=== PATIENT | female | born 1995 | race Caucasian/White ===

== ENCOUNTER 2017-02-09 14:41 | Emergency (ER) | payer OTHER, MEDICAID ==
[~2017-02-09] VITALS: Ht 160 cm; Wt 71.7 kg
[~2017-02-09 14:41] MED LIST: CEPH-507 PO; HYDR-3812 PO; IBUP-1773 PO; KETO75CA PO; PREN1TAB86 PO
[2017-02-09 15:00] VITALS: BP 157/87
[2017-02-09] MEDS ORDERED: LAMO100T (15:23)
[2017-02-09] MEDS ORDERED: HYDR-700 (15:23)
[2017-02-09] MEDS ORDERED: NS IV 1000 ML 1,000 ML IV ONE (16:11)
[2017-02-09 16:33] LABS: BASOPHILS % (AUTO) 0 % (0-10); EOSINOPHILS % (AUTO) 0 % (0-10); LYMPHOCYTES # (AUTO) 2.6 X 10^3 (1.0-4.0); LYMPHOCYTES % (AUTO) 11 % (12-44); MEAN CORPUSCULAR HEMOGLOBIN 28 PG (25-34); MEAN CORPUSCULAR HGB CONC 37 G/DL (32-36); MEAN CORPUSCULAR VOLUME 77 FL (80-99); MONOCYTES # (AUTO) 1.8 X 10^3 (0.0-1.0); MONOCYTES % (AUTO) 8 % (0-12); NEUTROPHILS # (AUTO) 18.6 X 10^3 (1.8-7.8); NEUTROPHILS % (AUTO) 81 % (42-75); PLATELET COUNT 448 10^3/uL (130-400); RED CELL DISTRIBUTION WIDTH 14.5 % (10.0-14.5)
--- NOTE | 2017-02-09 16:33 | ED General ---
General Chief Complaint: Upper Extremity Stated Complaint: ABSCESS ON RIGHT ARM Nursing Triage Note: ARRIVED VIA AMB WITHOUT DIFFICULTY. COMPLAINS OF RIGHT ARM PAIN, REDNESS, ET EDEMA STARTING YESTERDAY. PT DENIES IV DRUG USE ET IS VERY TWITCHY. Nursing Sepsis Screen: No Definite Risk Source of Information: Patient Exam Limitations: No Limitations History of Present Illness Time Seen by Provider: 16:00 Initial Comments This 22-year-old woman presents to the emergency room with complaints of erythema and pain in the right antecubital fossa suggestive of cellulitis. She also has pain with flexion of the elbow and some mild swelling in that area. She reports the redness and irritation started last night and has worsened throughout the day. She denies any fever. She is significantly tachycardic on presentation. She has rather profound dystonic movements suggestive of methamphetamine use and she has the appearance of injection motley near the affected area on the right arm. Patient denies any substance abuse. She believes she has had some fevers at home but has not measured her temperature. Allergies and Home Medications Allergies Coded Allergies: No Known Drug Allergies (Unverified , 06/27/10) Home Medications Hydroxyzine HCl 25 Mg Tablet #90 (Reported) Lamotrigine 100 Mg Tablet #30 (Reported) Constitutional: see HPI EENTM: no symptoms reported Respiratory: no symptoms reported Cardiovascular: see HPI Gastrointestinal: no symptoms reported Genitourinary: no symptoms reported : No Musculoskeletal: see HPI Skin: see HPI Past [id number] Hx Patient Social History Alcohol Use: Denies Use Recreational Drug Use: No Drug of Choice: THC Smoking Status: Current Everyday Smoker Type Used: Cigarettes Recent Foreign Travel: No Contact w/Someone Who Travel: No Recent Infectious Disease Expo: No Recent Hopitalizations: No Immunizations Up To Date Tetanus Booster (TDap): Less than 5yrs Seasonal Allergies Seasonal Allergies: No Surgeries HX Surgeries: Yes Surgeries: Gallbladder Respiratory Hx Respiratory Disorders: Yes (Pleurisy) Cardiovascular Hx Cardiac Disorders: No Neurological Hx Neurological Disorders: No Reproductive System Hx Reproductive Disorders: No Genitourinary Hx Genitourinary Disorders: No Gastrointestinal Hx Gastrointestinal Disorders: Yes (Gallstones) Gastrointestinal Disorders: Gall Bladder Disease Musculoskeletal Hx Musculoskeletal Disorders: No Endocrine Hx Endocrine Disorders: No HEENT HX ENT Disorders: No Cancer Hx Cancer: No Psychosocial Hx Psychiatric Problems: Yes Behavioral Health Disorders: Anxiety, ODD, Bipolar, Depression Integumentary HX Skin/Integumentary Disorder: No Blood Transfusions Hx Blood Disorders: No Adverse Reaction to a Blood Tr: No Family Medical History Significant Family History: Heart Disease, Cancer (breast) Family Medial History: Arthritis Diabetes mellitus FH: cancer FH: heart failure FH: stroke Hypertension Myocardial infarction Total blockage of heart Physical Exam-Suspected Sepsis Physical Exam Vital Signs Vital Sign - Last 12Hours 02/09/17 15:00 Temp 96.5 Pulse 125 Resp 16 B/P 157/87 Pulse Ox 98 Capillary Refill : Less Than 3 Seconds Blood Pressure Mean: 110 General Appearance: WD/WN Mild Distress HEENT: PERRL/EOMI Normal ENT Inspection Respiratory: Lungs Clear Normal Breath Sounds No Accessory Muscle Use No Respiratory Distress Cardiovascular: No Edema No Murmur Tachycardia Extremity: Other (there is a streaky patch of erythema in the antecubital fossa with some apparent puncture motley at the distal edge of the erythema. The elbow is mildly swollen and painful with range of motion) Neurologic/Psychiatric: Alert Oriented x3 No Motor/Sensory Deficits Normal Mood/Affect strap buckler II-XII Norm as Tested Other (involuntary dystonic movements) Skin: normal color warm/dry other (erythema and puncture motley in the right antecubital fossa) Laceration Repair : Suture Size: 4-0 Progress/Results/Core Measures Suspected Sepsis Recent Fever Within 48 Hours: No Infection Criteria Present: None New/Unexplained Altered Menta: No Sepsis Screen: No Definite Risk Sepsis Diagnosis: SIRS Temperature:96.5 Pulse: 125 Respiratory Rate: 16 Laboratory Tests 02/09/17 16:20: White Blood Count 23.0H Blood Pressure 157 /87 Mean: 110 Laboratory Tests 02/09/17 16:20: Creatinine 0.79, INR Comment 1.0, Platelet Count 448H, Total Bilirubin 1.0 Results/Orders Lab Results Laboratory Tests Test 02/09/17 16:20 Range/Units Activated Partial Thromboplast Time 33 24-35 SEC Alanine Aminotransferase (ALT/SGPT) 17 0-55 U/L Albumin 4.5 3.2-4.5 G/DL Alkaline Phosphatase 92 40-136 U/L Anion Gap 13 5-14 MMOL/L Aspartate Amino Transf (AST/SGOT) 26 5-34 U/L BUN/Creatinine Ratio 16 Band Neutrophils 0 % Basophils # (Auto) 0.0 0.0-0.1 10^3/uL Basophils % (Manual) 0 % Basophils (%) (Auto) 0 0-10 % Blood Morphology Comment NORMAL Blood Urea Nitrogen 13 7-18 MG/DL C-Reactive Protein High Sensitivity 6.44 H 0.00-0.50 MG/DL Calcium Level 9.7 8.5-10.1 MG/DL Carbon Dioxide Level 18 L 21-32 MMOL/L Chloride Level 102 98-107 MMOL/L Creatinine 0.79 0.60-1.30 MG/DL Eosinophils # (Auto) 0.0 0.0-0.3 10^3/uL Eosinophils % (Manual) 0 % Eosinophils (%) (Auto) 0 0-10 % Estimat Glomerular Filtration Rate > 60 Glucose Level 100 70-105 MG/DL Hematocrit 39 35-52 % Hemoglobin 14.1 11.5-16.0 G/DL INR Comment 1.0 0.8-1.4 Lactic Acid Level 0.92 0.50-2.00 MMOL/L Lymphocytes # (Auto) 2.6 1.0-4.0 X 10^3 Lymphocytes % (Manual) 18 % Lymphocytes (%) (Auto) 11 L 12-44 % Mean Corpuscular Hemoglobin 28 25-34 PG Mean Corpuscular Hemoglobin Concent 37 H 32-36 G/DL Mean Corpuscular Volume 77 L 80-99 FL Mean Platelet Volume 9.0 7.4-10.4 FL Monocytes # (Auto) 1.8 H 0.0-1.0 X 10^3 Monocytes % (Manual) 1 % Monocytes (%) (Auto) 8 0-12 % Neutrophils # (Auto) 18.6 H 1.8-7.8 X 10^3 Neutrophils % (Manual) 81 % Neutrophils (%) (Auto) 81 H 42-75 % Platelet Count 448 H 130-400 10^3/uL Potassium Level 3.7 3.6-5.0 MMOL/L Prothrombin Time 13.3 12.2-14.7 SEC Red Blood Count 5.00 4.35-5.85 10^6/uL Red Cell Distribution Width 14.5 10.0-14.5 % Serum Test, Qualitative NEGATIVE NEGATIVE Sodium Level 133 L 135-145 MMOL/L Total Bilirubin 1.0 0.1-1.0 MG/DL Total Protein 7.7 6.4-8.2 G/DL White Blood Count 23.0 H 4.3-11.0 10^3/uL My Orders Orders-JONATHON FISCHER MD Cbc With Automated Diff (02/09/17 16:11) Comprehensive Metabolic Panel (02/09/17 16:11) Lactic Acid Analyzer (02/09/17 16:11) Blood Culture (02/09/17 16:) Protime With Inr (02/09/17:) Partial Thromboplastin Time (02/09/17 16:11) O2 (02/09/17 16:11) Saline Lock/Iv-Start (02/09/17 16:11) Saline Lock/Iv-Start (02/09/17 16:) Vital Signs Adult Sepsis Patie Q1HR (02/09/17 16:11) Remove Rings In Anticipation O (02/09/17 16:) Hs C Reactive Protein (02/09/17 16:) Hcg,Qualitative Serum (02/09/17:) Ns Iv 1000 Ml (Sodium Chloride 0.9%) (02/09/17 16:) Manual Differential (02/09/17 16:20) Vital Signs/I&O Vital Sign - Last 12Hours 02/09/17 15:00 Temp 96.5 Pulse 125 Resp 16 B/P 157/87 Pulse Ox 98 Capillary Refill : Less Than 3 Seconds Blood Pressure Mean: 110 Progress Note #1: Time: 16:32 Progress Note Patient was seen and evaluated. She had source of infection with probable cellulitis on the right arm and was notably tachycardic. There was concern for sepsis and septic workup was ordered. Patient denied drug use but methamphetamine use was suspected due to her uncontrollable dystonic movements and evidence of injection motley near the cellulitis in the right antecubital fossa. Patient was informed a drug screen would be performed along with her workup. Nursing notified me at 14:30 the patient was demanding her IV be removed so that she can leave. Patient will be required to sign AMA paperwork if she leaves. Progress Note #2: Time: 19:18 Progress Note Patient did leave AGAINST MEDICAL ADVICE. She was clearly informed by nursing staff prior to leaving that she may have a life threatening condition. Her labs were reviewed when they were available. She had notable leukocytosis and an elevated CRP. I made two attempts to contact the patient by phone. There was no answer on the first attempt. On the second attempt I spoke with a man who stated patient was "out cold". I informed him it was important that she return to the emergency room immediately. He expressed understanding and implied he would get her back to the emergency room promptly. This information was passed along to Dr. Hicks. Departure Impression Impression: Primary Impression: Sepsis Qualified Code: A41.9 - Sepsis, unspecified organism Additional Impressions: Cellulitis of right arm Tachycardia Disposition: 07 AGAINST MEDICAL ADVICE Condition: Unchanged Departure-Patient Inst. Referrals: NO,LOCAL PHYSICIAN (PCP/Family) Primary Care Physician JONATHON FISCHER MD Feb 09, 2017 16:33
[2017-02-09 16:47] LABS: PROTHROMBIN TIME PATIENT 13.3 SEC (12.2-14.7)
[2017-02-09 16:50] LABS: BAND NEUTROPHILS 0 %; BASOPHILS % (MANUAL) 0 %; EOSINOPHILS % (MANUAL) 0 %; LYMPHOCYTES % (MANUAL) 18 %; NEUTROPHILS % (MANUAL) 81 %
[2017-02-09 16:52] LABS: ALANINE AMINOTRANSFERASE 17 U/L (0-55); ALBUMIN 4.5 G/DL (3.2-4.5); ANION GAP 13 MMOL/L (5-14); ASPARTATE AMINO TRANSFERASE 26 U/L (5-34); BLOOD UREA NITROGEN 13 MG/DL (7-18); BUN/CREATININE RATIO 16; CALCIUM 9.7 MG/DL (8.5-10.1); CARBON DIOXIDE 18 MMOL/L (21-32); CHLORIDE 102 MMOL/L (98-107); CREATININE SERUM 0.79 MG/DL (0.60-1.30); GFR ESTIMATED > 60; GLUCOSE 100 MG/DL (70-105); POTASSIUM 3.7 MMOL/L (3.6-5.0); SODIUM 133 MMOL/L (135-145); TOTAL PROTEIN 7.7 G/DL (6.4-8.2); hs C REACTIVE PROTEIN 6.44 MG/DL (0.00-0.50)
== END 2017-02-09 16:30 | disposition left against medical advice (07) ==
LOC: EDUNIT# 14:41 → ER 14:44
DX: A41.9 Sepsis, unspecified organism (principal); L03.113 Cellulitis of right upper limb; R00.0 Tachycardia, unspecified; F17.210 Nicotine dependence, cigarettes, uncomplicated; Z53.29 Procedure and treatment not carried out because of patient's decision for other reasons
CPT/HCPCS: 36415; 80053; 83605; 84703; 85007; 85027; 85610; 85730; 86141; 87040

== ENCOUNTER → 2019-11-25 | Outpatient (CLI) | payer OTHER ==
[~2019-11-25] MED LIST changes: +ACHD5005 PO; +ACYC400T PO; -HYDR-3812 PO; +HYDR-700; +LAMO100T; +PREN-53 PO; +SERT25TA5 PO
--- NOTE | 2019-11-25 12:51 | Diagnostic Imaging Report ---
INDICATION: Elevated blood pressure. A biophysical profile was performed. Fetus is cephalic. heart rate was recorded at 153 bpm. Amniotic fluid index is 11.1 cm. Biophysical profile score 6 out of 8. Two-point deduction was given for only single episode of breathing movement was visualized for 15 seconds or less. IMPRESSION: Biophysical profile score 6 out of 8. Dictated by: Dictated on workstation # [id number]
== END ==
LOC: RAD 11:43
PROVIDERS: ATTEND Family Medicine
DX: O13.3 Gestational [pregnancy-induced] hypertension without significant proteinuria, third trimester (principal); Z3A.00 Weeks of gestation of pregnancy not specified
CPT/HCPCS: 76819

== ENCOUNTER 2019-11-26 17:26 | Outpatient (CLI) | payer OTHER ==
[2019-11-26] VITALS (23 sets, daily range): BP systolic 125–144; BP diastolic 5–91
[~2019-11-26] VITALS: Ht 160 cm; Wt 82.5 kg
[~2019-11-26 17:26] MED LIST changes: -ACYC400T PO; -PREN-53 PO; -SERT25TA5 PO
--- NOTE | 2019-11-26 17:30 | NUR ---
WALTER DEJESUS presented to unit via ambulation from ED, accompanied by mother, with c/o HIGH BLOOD PRESSURE,DIZZY,CRAMPING. WALTER DEJESUS weighed, gowned, voided, and to bed. EFHM and TOCO applied, VS taken. WALTER DEJESUS oriented to bed controls, call light, TV, heat, and A/C controls.
[2019-11-26] MEDS ORDERED: LACTATED RINGERS 1,000 ML IV SCH (18:45)
[2019-11-26 19:20] LABS: BASOPHILS % (AUTO) 0 % (0-10); EOSINOPHILS # (AUTO) 0.1 10^3/uL (0.0-0.3); EOSINOPHILS % (AUTO) 1 % (0-10); HEMATOCRIT 36 % (35-52); HEMOGLOBIN 12.5 G/DL (11.5-16.0); LYMPHOCYTES # (AUTO) 2.1 X 10^3 (1.0-4.0); LYMPHOCYTES % (AUTO) 19 % (12-44); MEAN CORPUSCULAR HEMOGLOBIN 29 PG (25-34); MEAN CORPUSCULAR HGB CONC 35 G/DL (32-36); MEAN CORPUSCULAR VOLUME 82 FL (80-99); MEAN PLATELET VOLUME 9.3 FL (7.4-10.4); MONOCYTES # (AUTO) 0.6 X 10^3 (0.0-1.0); MONOCYTES % (AUTO) 6 % (0-12); NEUTROPHILS # (AUTO) 8.5 X 10^3 (1.8-7.8); NEUTROPHILS % (AUTO) 75 % (42-75); PLATELET COUNT 435 10^3/uL (130-400); RED CELL DISTRIBUTION WIDTH 14.8 % (10.0-14.5); WHITE BLOOD COUNT 11.4 10^3/uL (4.3-11.0)
[2019-11-26] MEDS ORDERED: ACYC400T PO ×2 (19:33)
[2019-11-26] MEDS ORDERED: SERT25TA5 PO ×2 (19:33)
[2019-11-26] MEDS ORDERED: PREN-53 PO ×2 (19:33)
[2019-11-26 19:38] LABS: ALANINE AMINOTRANSFERASE 11 U/L (0-55); ALBUMIN 3.7 GM/DL (3.2-4.5); ALKALINE PHOSPHATASE 124 U/L (40-136); BILIRUBIN,TOTAL 0.2 MG/DL (0.1-1.0); BUN/CREATININE RATIO 9; CALCIUM 9.5 MG/DL (8.5-10.1); CARBON DIOXIDE 17 MMOL/L (21-32); CHLORIDE 107 MMOL/L (98-107); CREATININE SERUM 0.55 MG/DL (0.60-1.30); GFR ESTIMATED > 60; GLUCOSE 76 MG/DL (70-105); POTASSIUM 3.7 MMOL/L (3.6-5.0); SODIUM 136 MMOL/L (135-145); TOTAL PROTEIN 6.4 GM/DL (6.4-8.2); URIC ACID 3.8 MG/DL (2.6-7.2)
--- NOTE | 2019-11-26 20:40 | NUR ---
Dr. Piña called with update on pt contractions and labs. Vitals and blood pressures reviewed. SVE reviewed. orders one dose of Vistaril 50mg to be given for contractions, and 1000mg of Tylenol to be given for headache. states that is contractions go away, to call her back with an update, but if contractions continue after Vistaril, keep pt under observation for the evening.
[2019-11-26] MEDS ORDERED: ACETAMINOPHEN 500 MG TAB (TYLENOL) PO ONE (21:00)
[2019-11-26] MEDS ORDERED: hydrOXYzine (VISTARIL/ATARAX) 25 MG capsule/tablet PO ONE (21:00)
--- NOTE | 2019-11-26 22:52 | NUR ---
Nurse in to check on pt. Pt. states that contractions are much less frequent and that she would not rate them at a 3 on the pain scale, down from an 8.
--- NOTE | 2019-11-26 23:30 | NUR ---
Pt. walked out with mom after nurse went over discharge paperwork. No s/s of distress.
--- NOTE | 2019-11-28 08:14 | Physician Query-Final Dx ---
Clinic Account Progress/Dx Physician Query: Please give diagnosis Please give # weeks gestation Date of Service Nov 26, 2019 at 17:26 KATHYA MCMILLAN Nov 28, 2019 08:14
== END 2019-11-26 23:30 | disposition home or self-care (01) ==
LOC: WSo 17:26 → LDRP 17:28 → WSo 23:30
PROVIDERS: ATTEND Family Medicine
DX: O26.893 Other specified pregnancy related conditions, third trimester (principal); R42 Dizziness and giddiness; Z3A.36 36 weeks gestation of pregnancy
CPT/HCPCS: 36415; 80053; 83615; 84550; 85025; 96360; 99214

== ENCOUNTER → 2019-11-28 | Outpatient (CLI) | payer OTHER ==
[~2019-11-28] MED LIST changes: +ACYC400T PO; +CEPH250C PO; +PREN-53 PO; +SERT25TA5 PO
--- NOTE | 2019-11-28 14:55 | Diagnostic Imaging Report ---
INDICATION: Abnormal ultrasound. There is a single live fetus in a cephalic presentation. heart rate was recorded 169 bpm. Amniotic fluid index is 10.6 cm Biophysical profile was performed with normal score of 8 out of 8. IMPRESSION: Biophysical profile score normal 8 out of 8. Dictated by: Dictated on workstation # [id number]
== END ==
LOC: RAD 14:19
PROVIDERS: ATTEND Family Medicine
DX: O28.3 Abnormal ultrasonic finding on antenatal screening of mother (principal)
CPT/HCPCS: 76819

== ENCOUNTER 2019-11-29 19:38 | Outpatient (CLI) | payer OTHER ==
[~2019-11-29] VITALS: Ht 157.5 cm; Wt 82.3 kg
[~2019-11-29 19:38] MED LIST changes: -CEPH250C PO
--- NOTE | 2019-11-29 19:45 | NUR ---
WALTER DEJESUS presented to unit via ambulation from ED, accompanied by family, with c/o CONTRACTIONS. WALTER DEJESUS weighed, gowned, voided, and to bed. EFHM and TOCO applied, VS taken. WALTER DEJESUS oriented to bed controls, call light, TV, heat, and A/C controls.
--- NOTE | 2019-11-29 19:59 | NUR ---
Asael Barrow RN in with pt, pt placed on EFM and VS obtained.
[2019-11-29 20:01] VITALS: BP 149/78
[2019-11-29 20:02] VITALS: BP 149/78
[2019-11-29 20:07] LABS: BILIRUBIN,URINE NEGATIVE (NEGATIVE); CLARITY,URINE CLEAR; COLOR,URINE YELLOW; GLUCOSE, URINE (UA) NEGATIVE (NEGATIVE); KETONES,URINE NEGATIVE (NEGATIVE); LEUKOCYTE ESTERASE ,URINE TRACE (NEGATIVE); NITRITE,URINE NEGATIVE (NEGATIVE); PROTEIN,URINE NEGATIVE (NEGATIVE)
[2019-11-29 20:17] LABS: BACTERIA,URINE MODERATE /HPF
[2019-11-29 20:18] LABS: AMORPHOUS SEDIMENT,UR FEW AMOR PHOSPHATE /LPF
[2019-11-29] MEDS ORDERED: CEPHALEXIN 250 MG (KEFLEX) CAP PO ONE ×2 (20:30→20:31)
[2019-11-29] MEDS ORDERED: CEPH250C PO (20:32)
--- NOTE | 2019-11-29 20:36 | NUR ---
Provider change to Dr Malloy due to coverage for the weekend. Dr Malloy called and orders received for discharge with treatment of UTI. New script called to [facility] and initial dose given at discharge.
[2019-11-29 20:39] VITALS: BP 149/78
--- NOTE | 2019-11-29 20:41 | NUR ---
Pt discharged with written and verbal discharge orders. Pt questions answered and pt reassured at this time. Pt ambulated to private vehicle with mother.
--- NOTE | 2019-12-02 08:48 | Physician Query-Final Dx ---
KATHYA MCMILLAN 12/02/19 0848: Clinic Account Progress/Dx Physician Query: Please give diagnosis Please give # weeks gestation Date of Service Nov 29, 2019 at 19:38 MARINA DUONG MD 12/03/19 0709: Clinic Account Progress/Dx DIAGNOSIS: Diagnosis 1. IUP at 28 weeks 2. UTI KATHYA MCMILLAN Dec 02, 2019 08:48 MARINA DUONG MD Dec 03, 2019 07:09
== END 2019-11-29 20:44 | disposition home or self-care (01) ==
LOC: LDRP 19:38 → WSo 19:38
PROVIDERS: ATTEND Family Medicine
DX: O62.9 Abnormality of forces of labor, unspecified (principal); Z3A.00 Weeks of gestation of pregnancy not specified
CPT/HCPCS: 81000; 87088; 99213

== ENCOUNTER 2019-12-05 03:52 | Inpatient (IN) | payer OTHER ==
[2019-12-05] VITALS (61 sets, daily range): BP systolic 67–164; BP diastolic 31–91
[~2019-12-05] VITALS: Ht 160 cm; Wt 82.1 kg
[~2019-12-05 03:52] MED LIST changes: +CEPH250C PO
--- NOTE | 2019-12-05 06:15 | NUR ---
WALTER DEJESUS presented to unit via ambulatory from ED, accompanied by family, with c/o INDUCTION. WALTER DEJESUS weighed, gowned, voided, and to bed. EFHM and TOCO applied, VS taken. WALTER DEJESUS oriented to bed controls, call light, TV, heat, and A/C controls.
--- NOTE | 2019-12-05 06:48 | History & Physical-OB ---
OB - Chief Complaint & HPI Date/Time Date of Admission: Date of Admission: Dec 05, 2019 at 06:14 Date seen by a Provider: Dec 05, 2019 Time Seen by a Provider: 08:50 Chief Complaint/History OB-Reason for Admission/Chief: Induction of Labor Hx : 3 Hx Para: 2 Expected Date of Delivery: Dec 12, 2019 Gestational Age in Weeks: 39 Gestational Age in Days: 0 Indication for induction: maternal discomfort History of Labs O+, antibody neg, RNI, HIV/HepB/RPR NR, GC/chlamydia neg. 1 hour glucola borderline, 3 hour okay. GBS positive. Allergies and Home Medications Allergies Coded Allergies: No Known Drug Allergies (Unverified , 06/27/10) Home Medications Cephalexin 250 Mg Capsule, 500 MG PO TID Prescribed by: AKBAR COLIN on 11/29/192031 Patient Home Medication List Home Medication List Reviewed: Yes OB - History Hx of Present Care: Yes Ultrasounds: Normal mid trimester US Medical Complications: Psychiatric (depression), Other (history of herpes, on suppression therapy) Obstetrical History Hx : 3 Hx Para: 2 Hx # Term Pregnancies: 2 Hx # Pregnancies: 0 Number of Living Children: 2 Hx Termination: No Hx Multiple Gestation: No Hx Ectopic : No Hx Stillbirth: No Hx Complication: No Hx Induced Hypertens: No Hx Maternal Gestational Diabet: No Hx Hemorrhage: No Delivery History Hx Dystocia: No Hx Forceps Assisted Delivery: No Hx Vacuum Extraction Assisted: No Hx Placenta Abnormality: No Hx Distress: No Hx Large For Gestational Age I: No Hx Small for Gestational Age I: No Hx Section: No Hx Vaginal Delivery Post C-Sec: No Hx Blood Disorders: No Adverse Rxn to Tranfusion: No Patient Past Medical History Depression Social History/Family History HIV/AIDS: No Recent Infectious Disease Expo: No Sexually Transmitted Disease: Yes Alcohol Use: Denies Use Recreational Drug Use: No Smoking Cessation: Current every day smoker Immunizations Hepatitis A: Yes Hepatitis B: Yes Tetanus Booster (TDap): Less than 5yrs Rubella: immune RPR/VDRL: Negative GBS Status: Positive HBsAG: Negative OB - Admission Exam Physical Exam HEENT: NCAT Abdomen: Non tender Extremities: Normal Cervical Dilatation: 4cm Effacement: 25% Station: -3 Membranes: Ruptured (AROM at time of exam, clear fluid) Amniotic Fluid: Clear Heart Rate: 140's Accelerations: Accelerations Present Decelerations: No Decelerations Short Term Variability: Present Factory Helper Variability: Average (6-25) Contractions on Admission: >10 Minutes Apart Hope Scoring Tool (Modified) Dilation (cm): 3-4cm (2) Effacement (%): 0-30% (0) Descent/Station: -3 (0) Cervix Consistency: Soft (2) Cervix Position: Anterior (2) Add 1 point for: Each previous vaginal delivery (1) (2) Hope Score: 8 OB - Assessment/Plan/Diagnosis Assessment Assessment: group B positive strep, induction of labor Admission Dx Induction of labor at 39 weeks gestation Group B strep positive History of herpes on acyclovir suppression therapy Admission Status: Inpatient Order (span 2 midnights) Reason for Inpatient Admission: Induction, labor, delivery and course Plan Plan: Induction Induction Method: per Pitocin Protocol Other Plan AROM done with clear fluid Ampicillin for GBS positive TERRENCE SELBY MD Dec 05, 2019 06:48
[2019-12-05] MEDS ORDERED: OXYTOCIN/NORMAL SALINE 500 ML IV SCH (07:11)
[2019-12-05] MEDS ORDERED: WATER (STERILE) FOR INJECTION 20 ML ONE (07:45)
[2019-12-05] MEDS ORDERED: AMPICILLIN FOR IV USE 2,000 MG VIAL ONE (07:45)
[2019-12-05] MEDS: D5 LR IV SOLUTION 1,000 ML IV SCH ×2 (07:49→14:24)
[2019-12-05 08:07] LABS: BASOPHILS % (AUTO) 0 % (0-10); EOSINOPHILS # (AUTO) 0.2 10^3/uL (0.0-0.3); EOSINOPHILS % (AUTO) 2 % (0-10); HEMATOCRIT 37 % (35-52); HEMOGLOBIN 12.9 G/DL (11.5-16.0); LYMPHOCYTES # (AUTO) 1.7 X 10^3 (1.0-4.0); LYMPHOCYTES % (AUTO) 17 % (12-44); MEAN CORPUSCULAR HEMOGLOBIN 28 PG (25-34); MEAN CORPUSCULAR HGB CONC 35 G/DL (32-36); MEAN CORPUSCULAR VOLUME 82 FL (80-99); MEAN PLATELET VOLUME 9.5 FL (7.4-10.4); MONOCYTES # (AUTO) 0.7 X 10^3 (0.0-1.0); MONOCYTES % (AUTO) 7 % (0-12); NEUTROPHILS # (AUTO) 7.4 X 10^3 (1.8-7.8); NEUTROPHILS % (AUTO) 74 % (42-75); PLATELET COUNT 459 10^3/uL (130-400); RED CELL DISTRIBUTION WIDTH 14.9 % (10.0-14.5)
[2019-12-05] MEDS ORDERED: BUPIVACAINE 0.25% 30 ML (SENSORCAINE) VIAL ONE (09:30)
[2019-12-05] MEDS ORDERED: fentaNYL INJECTION 100 MCG/2 ML AMP ONE (09:30)
[2019-12-05] MEDS ORDERED: LACTATED RINGERS 1,000 ML IV ONE (10:24)
[2019-12-05] MEDS ORDERED: CATHETER FLUSH 10 ML SYR IV PRN (10:30)
[2019-12-05] MEDS ORDERED: EPIDURAL (SUFENTA 0.6MCG/ML BUPIVA 0.125%) 100 ML BAG EPI SCH (10:30)
[2019-12-05] MEDS ORDERED: NALOXONE 0.4 MG/ML 1 ML (NARCAN) VIAL IV PRN (10:30)
[2019-12-05] MEDS: AMPICILLIN FOR IV USE 1,000 MG in WATER (STERILE) FOR INJECTION 7.4 ML IV SCH ×2 (11:37→16:42)
--- NOTE | 2019-12-05 13:30 | NUR ---
THIS RN GIVES DR SELBY UPDATED PT REPORT. PITOCIN RATE, UC PATTERN, RECURRENT VARIABLES REGARDLESS OF POSITION CHANGES. LAST SVE /-2 WITH POSSIBLE FOREBAG, COMFORTABLE WITH EPIDURAL. DR SELBY ON UNIT AT 1340 TO SEE PT
[2019-12-05] MEDS ORDERED: CATHETER FLUSH 10 ML SYR IV SCH (14:00)
--- NOTE | 2019-12-05 14:27 | Labor Progress Note ---
Labor Progress Note Labor Progress Note Date Seen by Provider: Dec 05, 2019 Time Seen by Provider: 13:45 Subjective: Pt denies complaints. Objective: Cervical exam: 6.5/80/-2 Consistency: Soft Position: anterior Presentation: vertex heart tones: 150 beats per minute, moderate variability, recurrent variable decelerations with contractions, acceleration with scalp stim Tocometer: 4 ctx/10 minutes Assessment/Plan: Victorina Chapa is a 24 /Para 3 / 2,Gestational Age (wks)39 here for IOL. CEFM Continue pitocin IUPC placed, will start amnioinfusion with LR 300 mL bolus and 200 mL/hour Monitor closely Anesthesia: Epidural Anticipate vaginal delivery. Vitals - Labs Vital Signs - I&O Vital Signs Date Time Temp Pulse Resp B/P (MAP) Pulse Ox O2 Delivery O2 Flow Rate FiO2 12/05/19 13:15 36.3 76 99 Room Air 12/05/19 13:00 78 131/67 (88) 99 Room Air 12/05/19 12:45 82 141/77 (98) 100 Room Air 12/05/19 12:30 36.1 81 141/67 (91) 100 Room Air 12/05/19 12:15 82 136/67 (90) 100 Room Air 12/05/19 12:00 95 133/91 (105) 99 Room Air 12/05/19 11:45 74 16 133/69 (90) 99 Room Air 12/05/19 11:30 75 126/70 (88) 99 Room Air 12/05/19 11:15 82 126/73 (90) 100 Room Air 12/05/19 11:00 88 131/69 (89) 99 Room Air 12/05/19 10:45 86 134/80 (98) 98 Room Air 12/05/19 10:30 101 133/62 (85) 99 Room Air 12/05/19 10:15 97 146/70 (95) 98 Room Air 12/05/19 10:00 65 67/31 (43) 99 Room Air 12/05/19 09:45 36.5 86 147/79 (101) Room Air 12/05/19 09:15 76 137/77 (97) Room Air 12/05/19 09:00 89 132/83 (99) Room Air 12/05/19 08:45 93 16 140/66 (90) 98 Room Air 12/05/19 08:30 86 16 124/78 (93) 97 Room Air 12/05/19 08:00 Room Air 12/05/19 07:25 36.7 85 16 133/88 (103) 99 Room Air Labs Laboratory Tests 12/05/19 07:45: White Blood Count 10.0, Red Blood Count 4.54, Hemoglobin 12.9, Hematocrit 37, Mean Corpuscular Volume 82, Mean Corpuscular Hemoglobin 28, Mean Corpuscular Hemoglobin Concent 35, Red Cell Distribution Width 14.9H, Platelet Count 459H, Mean Platelet Volume 9.5, Neutrophils (%) (Auto) 74, Lymphocytes (%) (Auto) 17, Monocytes (%) (Auto) 7, Eosinophils (%) (Auto) 2, Basophils (%) (Auto) 0, Neutrophils # (Auto) 7.4, Lymphocytes # (Auto) 1.7, Monocytes # (Auto) 0.7, Eosinophils # (Auto) 0.2, Basophils # (Auto) 0.0 TERRENCE SELBY MD Dec 05, 2019 14:27
[2019-12-05] MEDS ORDERED: AMPICILLIN FOR IV USE 2,000 MG in WATER (STERILE) FOR INJECTION 14.8 ML IV SCH (14:58)
--- NOTE | 2019-12-05 15:57 | NUR ---
dr logan on ld unit at this time. rn updates on current pt report, no cervical change.
--- NOTE | 2019-12-05 17:49 | NUR ---
this rn updates dr logan on pt report. sve 1 station, sitting up to labor down. no current variables at this time.
--- NOTE | 2019-12-05 18:45 | OB Labor & Delivery Record ---
Vag Delivery Note Vag Delivery Note Date of Delivery: 12/05/19 Preoperative Diagnosis: Victorina Chapa is a (24 /Para 3 / 2,Gestational Age (wks)39with 0 days Postoperative Diagnosis: Same Surgeon: TERRENCE SELBY Ware[employer] Pricing And Inventory Clerk: none Anesthesia: Epidural Delivery Type: Findings: Viable male , apgars 7/9, weight pending Lacerations: perineal and left periurethral abrasions Intact placenta with 3 vessel cord. No nuchal cord, body cord or shoulder dystocia Estimated Blood Loss: 350 ml Complications: None Condition: Stable Description of Procedure: The patient is a 24 year old female who presented for induction of labor. She was admitted and informed consent was obtained. Her labor course was remarkable for recurrent variable decelerations which improved with amnioinfusion. She progressed to complete dilatation and began to push. She was then set up for delivery. The infant's head was delivered atraumatically in the BERTIN position. The shoulders and remainder of the infant's body were then delivered without difficulty. Upon delivery, the head was held below the level of the perineum and the mouth and nares were bulb suctioned. The cord was doubly clamped and cut and the was handed off to the pediatric staff. An intact placenta with 3-vessel cord delivered via Laura and there was found to be minimal bleeding.~ Vigorous fundal massage was performed and the fundus was found to be firm. IV oxytocin was given. Examination of the vagina and perineum revealed a perineal and left periurethral abrasion not requiring repair. Following the delivery, sponge, instrument and needle counts were correct. Mom and baby were both in stable condition in the labor suite. Vitals - Labs Vital Signs - I&O Vital Signs Date Time Temp Pulse Resp B/P (MAP) Pulse Ox O2 Delivery O2 Flow Rate FiO2 12/05/19 16:30 85 130/75 (93) 99 Room Air 12/05/19 16:15 93 135/75 (95) 100 Room Air 12/05/19 16:00 85 131/74 (93) 98 Room Air 12/05/19 15:45 75 16 124/71 (88) 100 Room Air 12/05/19 15:30 36.5 78 122/61 (81) 100 Room Air 12/05/19 15:15 76 134/69 (90) 99 Room Air 12/05/19 15:00 69 133/66 (88) 100 Room Air 12/05/19 14:45 82 134/76 (95) 99 Room Air 12/05/19 14:30 81 134/64 (87) 98 Room Air 12/05/19 14:15 90 129/56 (80) 100 Room Air 12/05/19 14:00 36.2 80 16 138/62 (87) 99 Room Air 12/05/19 13:45 92 130/76 (94) 99 Room Air 12/05/19 13:30 67 100 Room Air 12/05/19 13:15 36.3 76 99 Room Air 12/05/19 13:00 78 131/67 (88) 99 Room Air 12/05/19 12:45 82 141/77 (98) 100 Room Air 12/05/19 12:30 36.1 81 141/67 (91) 100 Room Air 12/05/19 12:15 82 136/67 (90) 100 Room Air 12/05/19 12:00 95 133/91 (105) 99 Room Air 12/05/19 11:45 74 16 133/69 (90) 99 Room Air 12/05/19 11:30 75 126/70 (88) 99 Room Air 12/05/19 11:15 82 126/73 (90) 100 Room Air 12/05/19 11:00 88 131/69 (89) 99 Room Air 12/05/19 10:45 86 134/80 (98) 98 Room Air 12/05/19 10:30 101 133/62 (85) 99 Room Air 12/05/19 10:15 97 146/70 (95) 98 Room Air 12/05/19 10:00 65 67/31 (43) 99 Room Air 12/05/19 09:45 36.5 86 147/79 (101) Room Air 12/05/19 09:15 76 137/77 (97) Room Air 12/05/19 09:00 89 132/83 (99) Room Air 12/05/19 08:45 93 16 140/66 (90) 98 Room Air 12/05/19 08:30 86 16 124/78 (93) 97 Room Air 12/05/19 08:00 Room Air 12/05/19 07:25 36.7 85 16 133/88 (103) 99 Room Air 12/05/19 07:25 36.7 85 16 98 Room Air Labs Laboratory Tests 12/05/19 07:45: White Blood Count 10.0, Red Blood Count 4.54, Hemoglobin 12.9, Hematocrit 37, Mean Corpuscular Volume 82, Mean Corpuscular Hemoglobin 28, Mean Corpuscular Hemoglobin Concent 35, Red Cell Distribution Width 14.9H, Platelet Count 459H, Mean Platelet Volume 9.5, Neutrophils (%) (Auto) 74, Lymphocytes (%) (Auto) 17, Monocytes (%) (Auto) 7, Eosinophils (%) (Auto) 2, Basophils (%) (Auto) 0, Neutrophils # (Auto) 7.4, Lymphocytes # (Auto) 1.7, Monocytes # (Auto) 0.7, Eosinophils # (Auto) 0.2, Basophils # (Auto) 0.0 TERRENCE SELBY MD Dec 05, 2019 18:45
[2019-12-05] MEDS: OXYTOCIN/NORMAL SALINE 500 ML IV SCH (18:55)
--- NOTE | 2019-12-05 19:20 | NUR ---
recovery period started at 1839. 1839: pericare by this rn, linens changed. vss, fundus firm, midline, 1 below, light bleeding. pt denies pain. call light within reach, this rn remains at bedside. 1854: fundus firm, midline, 1 below, light bleeding. pt denies needs at this time. call light within reach. pt attempting to breastfeed with help from jeff decker. 1909: fundus firm, midline, 1 below, light bleeding. pt denies needs at this time. call light within reach. pt skin to skin with infant. 1919: report given to jeronmio purdy
[2019-12-05] MEDS ORDERED: IBUPROFEN 600 MG (MOTRIN) TAB PO ONE (19:39)
[2019-12-05] MEDS ORDERED: BENZOCAINE/MENTHOL (DERMOPLAST) 60 ML CAN TP ONE (19:39)
[2019-12-05] MEDS ORDERED: WITCH HAZEL(TUCKS) 40 EA JAR ONE (19:39)
--- NOTE | 2019-12-05 19:45 | NUR ---
Pt states "Can I go smoke?" RN states "No, you cannot leave the unit with IV access and that is scheduled to come out in the morning." Mother of pt states "You'll be fine, do you want us to go get you some food?" Pt states "I don't even fucking care now." RN asks pt to notify her if she needs anything and the plan of care is to transfer pt to the post unit when she can move both her lower extremities. Pt voiced understanding.
[2019-12-05] MEDS ORDERED: BENZOCAINE/MENTHOL (DERMOPLAST) 60 ML CAN TP PRN ×2 (20:15→20:45)
[2019-12-05] MEDS ORDERED: WITCH HAZEL(TUCKS) 40 EA JAR TOP PRN ×2 (20:15→20:45)
[2019-12-05] MEDS ORDERED: DOCUSATE SODIUM 100 MG (COLACE) CAP PO SCH (21:00)
[2019-12-05] MEDS ORDERED: CEPHALEXIN 250 MG (KEFLEX) CAP PO SCH (21:00)
--- NOTE | 2019-12-05 21:20 | NUR ---
Pt to bedpan r/t lack of mobility from epidural, first void since delivery, lg amount clear yellow urine emptied, scant blood noted with one clot. Pericare pads changed, Will cont to monitor.
--- NOTE | 2019-12-05 22:40 | NUR ---
Pt to sob, epidural cath removed, tip in tact, site wnl, left o/a, asymptomatic per pt report. Up standby to bathroom, voided, pericare pads changed, denied use of tucks and dermoplast at this time, education on use provided, pt voiced understanding, pt to wc and tx to pp unit room 309 at this time. Oriented to call system, info packet and surroundings, understanding voiced, no ss distress, will cont to monitor.
--- NOTE | 2019-12-05 22:59 | NUR ---
Pt rings call light to ask if iv needed to remain in place, rn reassured pt the iv was to stay in place until after lab work in the morning when her blood levels were evaluated to determine if she would need blood transfused. Pt states, "Ok, I just didnt want to rip it out on accident if I still needed it."
[2019-12-06] MEDS ORDERED: IBUPROFEN 600 MG (MOTRIN) TAB PO SCH
[2019-12-06 02:16] VITALS: BP 114/71
[2019-12-06 05:47] LABS: BASOPHILS % (AUTO) 0 % (0-10); EOSINOPHILS # (AUTO) 0.2 10^3/uL (0.0-0.3); EOSINOPHILS % (AUTO) 1 % (0-10); HEMATOCRIT 30 % (35-52); HEMOGLOBIN 10.3 G/DL (11.5-16.0); LYMPHOCYTES # (AUTO) 2.6 X 10^3 (1.0-4.0); LYMPHOCYTES % (AUTO) 17 % (12-44); MEAN CORPUSCULAR HEMOGLOBIN 28 PG (25-34); MEAN CORPUSCULAR HGB CONC 34 G/DL (32-36); MEAN CORPUSCULAR VOLUME 83 FL (80-99); MEAN PLATELET VOLUME 9.1 FL (7.4-10.4); MONOCYTES # (AUTO) 0.9 X 10^3 (0.0-1.0); MONOCYTES % (AUTO) 6 % (0-12); NEUTROPHILS # (AUTO) 11.6 X 10^3 (1.8-7.8); NEUTROPHILS % (AUTO) 76 % (42-75); PLATELET COUNT 388 10^3/uL (130-400); WHITE BLOOD COUNT 15.3 10^3/uL (4.3-11.0)
[2019-12-06] MEDS ORDERED: PRENATAL VITAMIN 1 EA TAB PO SCH (07:00)
[2019-12-06] MEDS ORDERED: FERROUS SULF 325 MG (IRON) TAB PO SCH (08:09)
[2019-12-06] MEDS ORDERED: ACYCLOVIR 400 MG TABLET (ZOVIRAX) PO SCH (09:00)
[2019-12-06] MEDS: IBUPROFEN 600 MG (MOTRIN) TAB PO SCH ×2 (09:27→15:41)
[2019-12-06 09:30] VITALS: BP 125/72
--- NOTE | 2019-12-06 09:30 | NUR ---
AM shift assessment completed and vital signs obtained, see interventions. Plan of care reviewed with patient. Patient verbalizes understanding and questions answered. Scheduled Colace, PNV, Iron, and Motrin PO given. Shower supplies provided.
--- NOTE | 2019-12-06 10:29 | Anesthesia-Regional Post-Op ---
Regional Patient Condition Mental Status: Alert, Oriented x3 Circulation: Same as Pre-Op Headache: Absent Sensation: Full Recovery Motor Block: Absent Post Op Complications Complications None Follow Up Care/Instructions Patient Instructions None needed. Anesthesia/Patient Condition Patient is doing well, no complaints, stable vital signs, no apparent adverse anesthesia problems. No complications reported per nursing. GERA BELL CRNA Dec 06, 2019 10:29
[2019-12-06] MEDS: OXYTOCIN/NORMAL SALINE 500 ML IV SCH (11:38)
[2019-12-06] MEDS: CATHETER FLUSH 10 ML SYR IV SCH (11:40)
[2019-12-06] MEDS ORDERED: MEASLES,MUMPS,RUBELLA 1 EA INJ SC ONE (12:00)
[2019-12-06 12:28] VITALS: BP 124/64
[2019-12-06] MEDS ORDERED: DOCU100C37 PO (12:40)
[2019-12-06] MEDS ORDERED: FERR325T18 PO (12:40)
[2019-12-06] MEDS ORDERED: IBUP-844 PO (12:40)
--- NOTE | 2019-12-06 13:29 | NUR ---
Discharge instructions and medications reviewed with patient both written and verbally. Patient verbalizes understanding and questions answered.
--- NOTE | 2019-12-06 13:54 | Discharge Summary ---
Discharge Summary Hospital Course Hospital Course Date of Admission: Dec 05, 2019 at 06:14 Admission Diagnosis : Family Physician/Provider: No,Local Physician Date of Discharge: 12/06/19 Discharge Diagnosis: s/p spontaneous vaginal delivery asymptomatic anemia rubella non-immune Hospital Course: G3 now P3 admitted for IOl at 39 weeks. Uncomplicated labor and vaginal delivery with routine course, mild asymptomatic anemia, started on iron. Rubella non-immune, MMR given 12/06/2019. Labs and Pending Lab Test: Laboratory Tests 12/06/19 05:36: White Blood Count 15.3H, Red Blood Count 3.66L, Hemoglobin 10.3#L, Hematocrit 30L, Mean Corpuscular Volume 83, Mean Corpuscular Hemoglobin 28, Mean Corpuscular Hemoglobin Concent 34, Red Cell Distribution Width 15.0H, Platelet Count 388, Mean Platelet Volume 9.1, Neutrophils (%) (Auto) 76H, Lymphocytes (%) (Auto) 17, Monocytes (%) (Auto) 6, Eosinophils (%) (Auto) 1, Basophils (%) (Auto) 0, Neutrophils # (Auto) 11.6H, Lymphocytes # (Auto) 2.6, Monocytes # (Auto) 0.9, Eosinophils # (Auto) 0.2, Basophils # (Auto) 0.0 Home Meds Active Docusate Sodium 100 Mg Capsule 100 Mg PO BID PRN Ibu (Ibuprofen) 600 Mg Tablet 600 Mg PO Q6H PRN Ferrous Sulfate 325 Mg Tablet 325 Mg PO DAILY@0700 Reported 19 Tablet (Qir367/Iron Fumarate/FA/Dss) 1 Each Tablet 1 Each PO Sertraline HCl 25 Mg Tablet 25 Mg PO Assessment/Pt DC Instructions Follow up with Dr. Heller in 6 weeks for visit. Discharge Diet: Regular Diet Activity as Tolerated: Yes (avoid strenuous activity x 2 weeks.) Discharge Physical Examination Allergies: Coded Allergies: No Known Drug Allergies (Unverified , 06/27/10) General Appearance: No Apparent Distress, WD/WN Respiratory: Lungs Clear, Normal Breath Sounds Cardiovascular: Regular Rate, Rhythm, No Murmur Extremity: No Pedal Edema Skin: Normal Color, Warm/Dry Neurologic/Psychiatric: Alert, Normal Mood/Affect Clinical Quality Measures DVT/VTE Risk/Contraindication: Risk Factor Score Per Nursin RFS Level Per Nursing on Admit: 1=Low/No VTE DAVIDX TERRENCE HELLER MD Dec 06, 2019 13:54
[2019-12-06 15:39] VITALS: BP 113/73
--- NOTE | 2019-12-06 19:00 | NUR ---
Patient discharged at this time.
== END 2019-12-06 19:00 | disposition home or self-care (01) | DRG 806 ==
LOC: LDRP 06:14
PROVIDERS: ADMIT Family Medicine; ATTEND Family Medicine
PROC: 10E0XZZ Delivery of Products of Conception, External Approach (ICD-10-PCS; principal; 2019-12-05)
PROC: 3E033VJ Introduction of Other Hormone into Peripheral Vein, Percutaneous Approach (ICD-10-PCS; 2019-12-05)
DX: O99.824 Streptococcus B carrier state complicating childbirth (principal); Z37.0 Single live birth; O98.32 Other infections with a predominantly sexual mode of transmission complicating childbirth; A60.00 Herpesviral infection of urogenital system, unspecified; O99.334 Smoking (tobacco) complicating childbirth; F17.210 Nicotine dependence, cigarettes, uncomplicated; O90.81 Anemia of the puerperium; D64.9 Anemia, unspecified; O71.82 Other specified trauma to perineum and vulva; Z3A.39 39 weeks gestation of pregnancy; O76 Abnormality in fetal heart rate and rhythm complicating labor and delivery; Z23 Encounter for immunization
CPT/HCPCS: 36415; 85025; 86780; 86850; 86900; 86901; 90707

== ENCOUNTER 2021-01-16 17:23 | Emergency (ER) | payer SELFPAY ==
[~2021-01-16] VITALS: Ht 157 cm; Wt 90.0 kg
[~2021-01-16 17:23] MED LIST changes: +DOCU100C37 PO; +FERR325T18 PO; +IBUP-844 PO; -LAMO100T; +LAMO100T5; +SERT-412 PO; -SERT25TA5 PO
[2021-01-16] MEDS ORDERED: LIDOCAINE 2% VISCOUS 15 ML UDC PO ONE (18:00)
[2021-01-16] MEDS ORDERED: ANTACID SUSP 30 ML UDC (MYLANTA) PO ONE (18:00)
--- NOTE | 2021-01-16 18:25 | ED GI ---
General Chief Complaint: Abdominal/GI Problems Stated Complaint: CP Nursing Triage Note: ARRIVED VIA AMB TO ROOM 02 WITH COMPLAINTS OF UPPERGASTRIC PAIN/CHEST X1 MONTH OFF AND ON. Sepsis Screen: No Definite Risk History of Present Illness Date Seen by Provider: Jan 16, 2021 Time Seen by Provider: 17:30 Initial Comments 26-year-old female presents for 2 complaints. Over the last month she has been having epigastric pain, she has a history of heartburn. She is not taking any medication for this. She notices it improves after eating a banana. In addition she has recently been having some stump sternal pressure it is not continuous and usually last anywhere from 5 to 10 minutes. Her symptoms have n ot changed and are not worse today. No history of CAD and no extra stress at work or home at the present time. She denies any nausea or diaphoresis when her symptoms are present. She has not taking an H2 kat or PPI at the present time. Previous history of cholecystectomy. Timing/Duration: Intermittent (1 month) Location: Epigastric Radiation: Chest Modifying Factors: Improves With Eating Associated Symptoms: No Back Pain; Chest Pain; No Diaphoresis, No Fever/Chills; Heartburn; No Nausea/Vomiting, No Shortness of Air, No Syncope, No Weakness Allergies and Home Medications Allergies Coded Allergies: No Known Drug Allergies (Unverified , 06/27/10) Home Medications Docusate Sodium 100 Mg Capsule, 100 MG PO BID PRN for CONSTIPATION-1ST LINE Prescribed by: TERRENCE SELBY on 12/06/19 1240 Famotidine 20 Mg Tablet, 20 MG PO BID Prescribed by: LUCI DANIELS on 01/16/211955 Ferrous Sulfate 325 Mg Tablet, 325 MG PO DAILY@0700 Prescribed by: TERRENCE SELBY on 12/06/19 1240 Ibuprofen 600 Mg Tablet, 600 MG PO Q6H PRN for PAIN-MODERATE (5-7) Prescribed by: TERRENCE SELBY on 12/06/19 1240 Pantoprazole Sodium 40 Mg Tablet.dr, 40 MG PO DAILY Prescribed by: LUCI DANIELS on 01/16/211955 Patient Home Medication List Home Medication List Reviewed: Yes Review of Systems Review of Systems Constitutional: no symptoms reported, see HPI Respiratory: No Symptoms Reported, See HPI Cardiovascular: See HPI, Chest Pain Gastrointestinal: See HPI, Abdominal Pain; Denies Constipated, Denies Diarrhea, Denies Nausea, Denies Poor Appetite, Denies Vomiting Genitourinary: No Symptoms Reported, See HPI Musculoskeletal: no symptoms reported, see HPI All Other Systems Reviewed Negative Unless Noted: Yes Past Zolpmws-Ipvusx-Wqmswk Hx Past Med/Social Hx: Reviewed Nursing Past Med/Soc Hx Patient Social History Alcohol Use: Occasionally Uses Drug of Choice: THC Smoking Status: Current Everyday Smoker Type Used: Cigarettes Recent Infectious Disease Expo: No Recent Hopitalizations: No Immunizations Up To Date Tetanus Booster (TDap): Less than 5yrs Seasonal Allergies Seasonal Allergies: No Past Medical History Surgeries: Yes Gallbladder Respiratory: No Cardiac: No Neurological: No : No Last Menstrual Period: Jan 02, 2021 Reproductive Disorders: No Sexually Transmitted Disease: Yes HIV/AIDS: No Genitourinary: No Gastrointestinal: No Gall Bladder Disease Musculoskeletal: No Endocrine: No HEENT: No Cancer: No Psychosocial: Yes Depression Integumentary: Yes Herpes Blood Disorders: No Adverse Reaction/Blood Tranf: No Family Medical History Arthritis (Grandmother) Diabetes mellitus (Grandmother) FH: cancer (Grandfather had cancer in jaw) FH: heart failure FH: stroke (Grandfather) Hypertension (Grandmother) Myocardial infarction (Grandfather) Total blockage of heart Heart Disease, Cancer Physical Exam Vital Signs Vital Signs - First Documented 01/16/21 17:30 Temp 35.8 Pulse 94 Resp 16 B/P (MAP) 129/79 (96) Pulse Ox 97 O2 Delivery Room Air Capillary Refill : Less Than 3 Seconds Height/Weight/BMI Height: 5'3" Weight: 158lbs. 0.0oz. [id number]; 36.00 BMI Method:Stated General Appearance: WD/WN, no apparent distress HEENT: PERRL/EOMI, normal ENT inspection, TMs normal, pharynx normal Neck: non-tender, full range of motion, supple, normal inspection Respiratory: chest non-tender, lungs clear, normal breath sounds Cardiovascular: normal peripheral pulses, regular rate, rhythm Gastrointestinal: normal bowel sounds, non tender, soft; No distended, No rebo und, No tenderness Extremities: normal range of motion, non-tender, normal inspection, normal capillary refill Back: normal inspection, no CVA tenderness, no vertebral tenderness Neurologic/Psychiatric: no motor/sensory deficits, alert, normal mood/affect, oriented x 3 Skin: normal color, warm/dry Procedures/Interventions Suture Size: 4-0 Progress/Results/Core Measures Results/Orders Lab Results Laboratory Tests Test 01/16/21 18:23 01/16/21 19:00 Range/Units White Blood Count 8.6 4.3-11.0 10^3/uL Red Blood Count 4.87 3.80-5.11 10^6/uL Hemoglobin 13.4 11.5-16.0 g/dL Hematocrit 40 35-52 % Mean Corpuscular Volume 82 80-99 fL Mean Corpuscular Hemoglobin 28 25-34 pg Mean Corpuscular Hemoglobin Concent 34 32-36 g/dL Red Cell Distribution Width 14.6 H 10.0-14.5 % Platelet Count 381 130-400 10^3/uL Mean Platelet Volume 9.1 9.0-12.2 fL Immature Granulocyte % (Auto) 0 % Neutrophils (%) (Auto) 62 42-75 % Lymphocytes (%) (Auto) 27 12-44 % Monocytes (%) (Auto) 7 0-12 % Eosinophils (%) (Auto) 4 0-10 % Basophils (%) (Auto) 0 0-10 % Neutrophils # (Auto) 5.3 1.8-7.8 10^3/uL Lymphocytes # (Auto) 2.3 1.0-4.0 10^3/uL Monocytes # (Auto) 0.6 0.0-1.0 10^3/uL Eosinophils # (Auto) 0.3 0.0-0.3 10^3/uL Basophils # (Auto) 0.0 0.0-0.1 10^3/uL Immature Granulocyte # (Auto) 0.0 0.0-0.1 10^3/uL Prothrombin Time 11.7 L 12.2-14.7 SEC INR Comment 0.8 0.8-1.4 Activated Partial Thromboplast Time 31 24-35 SEC Sodium Level 138 135-145 MMOL/L Potassium Level 3.8 3.6-5.0 MMOL/L Chloride Level 104 98-107 MMOL/L Carbon Dioxide Level 22 21-32 MMOL/L Anion Gap 12 5-14 MMOL/L Blood Urea Nitrogen 7 7-18 MG/DL Creatinine 0.67 0.60-1.30 MG/DL Estimat Glomerular Filtration Rate > 60 BUN/Creatinine Ratio 10 Glucose Level 84 70-105 MG/DL Calcium Level 9.4 8.5-10.1 MG/DL Corrected Calcium 9.2 8.5-10.1 MG/DL Magnesium Level 1.7 1.6-2.4 MG/DL Total Bilirubin 0.2 0.1-1.0 MG/DL Aspartate Amino Transf (AST/SGOT) 16 5-34 U/L Alanine Aminotransferase (ALT/SGPT) 22 0-55 U/L Alkaline Phosphatase 79 40-136 U/L Myoglobin 15.7 10.0-92.0 NG/ML Troponin I < 0.028 <0.028 NG/ML Total Protein 7.1 6.4-8.2 GM/DL Albumin 4.2 3.2-4.5 GM/DL Amylase Level 59 25-125 U/L Lipase 33 8-78 U/L Urine Color YELLOW Urine Clarity CLEAR Urine pH 7.0 5-9 Urine Specific [place] 1.025 H 1.016-1.022 Urine Protein NEGATIVE NEGATIVE Urine Glucose (UA) NEGATIVE NEGATIVE Urine Ketones NEGATIVE NEGATIVE Urine Nitrite NEGATIVE NEGATIVE Urine Bilirubin NEGATIVE NEGATIVE Urine Urobilinogen 0.2 < = 1.0 MG/DL Urine Leukocyte Esterase NEGATIVE NEGATIVE Urine RBC (Auto) NEGATIVE NEGATIVE Urine RBC NONE /HPF Urine WBC NONE /HPF Urine Squamous Epithelial Cells 2-5 /HPF Urine Crystals PRESENT H /LPF Urine Amorphous Sediment FEW ANTONELLA URATES H /LPF Urine Bacteria TRACE /HPF Urine Casts NONE /LPF Urine Mucus NEGATIVE /LPF Urine Culture Indicated NO My Orders Orders - LUCI DANIELS Lidocaine 2% Viscous 15 Ml (Xylocaine Vi (01/16/21 18:00) Antacid Suspension (Mylanta Suspension (01/16/21 18:00) Cbc With Automated Diff (01/16/21 17:58) Magnesium (01/16/21 17:58) Ekg Tracing (01/16/21 17:58) Comprehensive Metabolic Panel (01/16/21 17:58) Myoglobin Serum (01/16/21 17:58) Protime With Inr (01/16/21 17:58) Partial Thromboplastin Time (01/16/21 17:58) O2 (01/16/21 17:58) Monitor-Rhythm Ecg Trace Only (01/16/21 17:58) Ed Iv/Invasive Line Start (01/16/21 17:58) Lipase (01/16/21 17:58) Amylase (01/16/21 17:58) Troponin I (01/16/21 17:58) Urine Bedside (01/16/21 17:58) Ua Culture If Indicated (01/16/21 17:58) Chest Pa/Lat (2 View) (01/16/21 19:04) Pantoprazole Tablet (Protonix Tablet) (01/16/21 20:00) Famotidine Tablet (Pepcid Tablet) (01/16/21 20:00) Medications Given in ED Current Medications Medications Dose Ordered Sig/Lucrecia Route Start Time Stop Time Status Last Admin Dose Admin Al Hydrox/Mg Hydrox/Simethicone 30 ml ONCE ONCE PO 01/16/21 18:00 01/16/21 18:01 DC 01/16/21 18:10 30 ML Famotidine 20 mg ONCE ONCE PO 01/16/21 20:00 01/16/21 20:01 DC 01/16/21 20:02 20 MG Lidocaine HCl 15 ml ONCE ONCE PO 01/16/21 18:00 01/16/21 18:01 DC 01/16/21 18:11 15 ML Pantoprazole Sodium 40 mg ONCE ONCE PO 01/16/21 20:00 01/16/21 20:01 DC 01/16/21 20:02 40 MG Vital Signs/I&O 01/16/21 01/16/21 17:30 20:02 Temp 35.8 36.0 Pulse 94 75 Resp 16 16 B/P (MAP) 129/79 (96) 114/56 (96) Pulse Ox 97 98 O2 Delivery Room Air Room Air Blood Pressure Mean: 96 Progress Progress Note : Time: 17:30 Progress Note Patient seen and evaluated, will give GI cocktail. Will do work-up with labs, E KG, chest x-ray. 1814 trace improvement with GI cocktail. Awaiting labs. 1899 labs all WNL. Will treat for GERD, with Protonix and Pepcid. 1944 Discharge instructions and return precautions reviewed with the patient. All questions answered. Initial ECG Impression Date: Jan 16, 2021 Initial ECG Impression Time: 18:02 Initial ECG Rate: 78 Initial ECG Rhythm: Normal Sinus Initial ECG Intervals: Normal Initial ECG Intervals VT 144, QRSD 102, QT 364, QTc 415. [place] P 41, QRS 28, T 28. Initial ECG Impression: Normal Initial ECG Comparisson: No Previous ECG Available Diagnostic Imaging Diagonstic Imaging: Xray Plain Films/CT/US/NM/MRI: chest Comments NAME: WALTER DEJESUS [facility] REC#: [id number] PT STATUS: REG ER : 1995 PHYSICIAN: LUCI DANIELS ADMIT DATE: 01/16/21/ER Draft Date of Exam:01/16/21 CHEST PA/LAT (2 VIEW) INDICATION: Chest pain. COMPARISON: 04/06/2015. EXAMINATION: Frontal and lateral views of the chest. FINDINGS: Clear lungs, bilaterally. The heart is normal. There is no pneumothorax but osseous structures are normal. IMPRESSION: Negative chest. Dictated on workstation # [id number] Dict: 01/16/211930 Trans: 01/16/211933 [facility] [id number] Interpreted by: MARINA PORTILLO Electronically signed by: Reviewed: Reviewed by Me Departure Impression Primary Impression: GERD (gastroesophageal reflux disease) Qualified Codes: K21.9 - Gastro-esophageal reflux disease without esophagitis Additional Impression: Costochondral chest pain Disposition: 01 HOME, SELF-CARE Condition: Improved Departure-Patient Inst. Decision time for Depature: 19:45 Referrals: [facility]/FLETCHER GARSIA DO NO,LOCAL PHYSICIAN (PCP) Primary Care Physician Patient Instructions: Acid Reflux and GERD in Adults (DC), Costochondritis (DC), Gastritis (DC) Add. Discharge Instructions: Take the Protonix and Pepcid as prescribed. Establish care with a primary care provider. If symptoms are not improving or worsen, call to schedule an appointment with Dr. Estrada. Eat a bland diet. Increase water intake, 16 ounces every 2-4 hours while awake. Return to the emergency department for new, urgent healthcare needs. All discharge instructions reviewed with patient and/or family. Voiced understanding. Scripts Famotidine (Pepcid) 20 Mg Tablet 20 MG PO BID, #60 TAB 0 Refills Prov: LUCI DANIELS 01/16/21 Pantoprazole Sodium (Protonix) 40 Mg Tablet.dr 40 MG PO DAILY, #30 TAB 0 Refills Prov: LUCI DANIELS 01/16/21 LUCI DANIELS Jan 16, 2021 18:25
[2021-01-16 18:35] LABS: BASOPHILS % (AUTO) 0 % (0-10); EOSINOPHILS # (AUTO) 0.3 10^3/uL (0.0-0.3); EOSINOPHILS % (AUTO) 4 % (0-10); HEMATOCRIT 40 % (35-52); HEMOGLOBIN 13.4 g/dL (11.5-16.0); LYMPHOCYTES # (AUTO) 2.3 10^3/uL (1.0-4.0); LYMPHOCYTES % (AUTO) 27 % (12-44); MEAN CORPUSCULAR HEMOGLOBIN 28 pg (25-34); MEAN CORPUSCULAR HGB CONC 34 g/dL (32-36); MEAN CORPUSCULAR VOLUME 82 fL (80-99); MEAN PLATELET VOLUME 9.1 fL (9.0-12.2); MONOCYTES # (AUTO) 0.6 10^3/uL (0.0-1.0); MONOCYTES % (AUTO) 7 % (0-12); NEUTROPHILS # (AUTO) 5.3 10^3/uL (1.8-7.8); NEUTROPHILS % (AUTO) 62 % (42-75); PLATELET COUNT 381 10^3/uL (130-400); WHITE BLOOD COUNT 8.6 10^3/uL (4.3-11.0)
[2021-01-16 18:41] LABS: ALBUMIN 4.2 GM/DL (3.2-4.5); CHLORIDE 104 MMOL/L (98-107); INR 0.8 (0.8-1.4); POTASSIUM 3.8 MMOL/L (3.6-5.0); PROTHROMBIN TIME PATIENT 11.7 SEC (12.2-14.7); SODIUM 138 MMOL/L (135-145)
[2021-01-16 18:43] LABS: AMYLASE 59 U/L (25-125); CALCIUM 9.4 MG/DL (8.5-10.1)
[2021-01-16 18:44] LABS: GLUCOSE 84 MG/DL (70-105); TOTAL PROTEIN 7.1 GM/DL (6.4-8.2)
[2021-01-16 18:45] LABS: CARBON DIOXIDE 22 MMOL/L (21-32)
[2021-01-16 18:46] LABS: BILIRUBIN,TOTAL 0.2 MG/DL (0.1-1.0)
[2021-01-16 18:47] LABS: ALKALINE PHOSPHATASE 79 U/L (40-136); CREATININE SERUM 0.67 MG/DL (0.60-1.30); GFR ESTIMATED > 60
[2021-01-16 18:48] LABS: BUN/CREATININE RATIO 10
[2021-01-16 18:50] LABS: ALANINE AMINOTRANSFERASE 22 U/L (0-55); MAGNESIUM 1.7 MG/DL (1.6-2.4)
[2021-01-16 18:52] LABS: LIPASE 33 U/L (8-78)
[2021-01-16 19:07] LABS: BILIRUBIN,URINE NEGATIVE (NEGATIVE); CLARITY,URINE CLEAR; COLOR,URINE YELLOW; GLUCOSE, URINE (UA) NEGATIVE (NEGATIVE); KETONES,URINE NEGATIVE (NEGATIVE); LEUKOCYTE ESTERASE ,URINE NEGATIVE (NEGATIVE); NITRITE,URINE NEGATIVE (NEGATIVE); PROTEIN,URINE NEGATIVE (NEGATIVE)
--- NOTE | 2021-01-16 19:34 | Diagnostic Imaging Report ---
INDICATION: Chest pain. COMPARISON: 04/06/2015. EXAMINATION: Frontal and lateral views of the chest. FINDINGS: Clear lungs, bilaterally. The heart is normal. There is no pneumothorax but osseous structures are normal. IMPRESSION: Negative chest. Dictated by: Dictated on workstation # [id number]
[2021-01-16 19:37] LABS: BACTERIA,URINE TRACE /HPF
[2021-01-16 19:38] LABS: AMORPHOUS SEDIMENT,UR FEW AMOR URATES /LPF
[2021-01-16] MEDS ORDERED: PANT40TA2 PO (19:56)
[2021-01-16] MEDS ORDERED: FAMO-119 PO (19:56)
[2021-01-16] MEDS ORDERED: PANTOPRAZOLE 40 MG (PROTONIX) TAB PO ONE (20:00)
[2021-01-16] MEDS ORDERED: FAMOTIDINE 20 MG (PEPCID) TABLET PO ONE (20:00)
[2021-01-16 20:02] VITALS: BP 114/56
== END 2021-01-16 20:03 | disposition home or self-care (01) ==
LOC: EDUNIT# 17:23 → ER 17:24
DX: K21.9 Gastro-esophageal reflux disease without esophagitis (principal); M94.0 Chondrocostal junction syndrome [Tietze]; F17.210 Nicotine dependence, cigarettes, uncomplicated; Z82.61 Family history of arthritis; Z83.3 Family history of diabetes mellitus; Z82.49 Family history of ischemic heart disease and other diseases of the circulatory system; Z80.8 Family history of malignant neoplasm of other organs or systems
CPT/HCPCS: 36415; 71046; 80053; 81000; 82150; 83690; 83735; 83874; 84484; 84703; 85025; 85610; 85730

== ENCOUNTER 2021-07-24 21:11 | Emergency (ER) | payer MEDICAID ==
[~2021-07-24] VITALS: Ht 162.5 cm; Wt 90.0 kg
[~2021-07-24 21:11] MED LIST changes: -ACYC400T PO; +ACYC400T21 PO; +FAMO-119 PO; +PANT40TA2 PO
[2021-07-24 23:13] LABS: BILIRUBIN,URINE NEGATIVE (NEGATIVE); CLARITY,URINE SL CLOUDY; COLOR,URINE YELLOW; GLUCOSE, URINE (UA) NEGATIVE (NEGATIVE); KETONES,URINE NEGATIVE (NEGATIVE); LEUKOCYTE ESTERASE ,URINE NEGATIVE (NEGATIVE); NITRITE,URINE NEGATIVE (NEGATIVE); PH,URINE 6.5 (5-9); PROTEIN,URINE NEGATIVE (NEGATIVE)
[2021-07-24 23:21] LABS: BACTERIA,URINE MODERATE /HPF
[2021-07-24 23:22] LABS: AMORPHOUS SEDIMENT,UR FEW AMOR URATES /LPF
[2021-07-24] MEDS ORDERED: ONDANSETRON 4 MG (ZOFRAN) ORAL DISSOLVE TAB SL ONE (23:45)
--- NOTE | 2021-07-24 23:46 | ED General ---
General Chief Complaint: Abdominal/GI Problems Stated Complaint: N/V DIARRHEA/HEADACHE Nursing Triage Note: KNOWN EXPOSURE TO COVID BY HER BOSS AT WORK. C/O N/V/D WITH HEADACHE AND MALAISE. X2 DAYS Source of Information: Patient Exam Limitations: No Limitations History of Present Illness Date Seen by Provider: Jul 24, 2021 Time Seen by Provider: 21:23 Initial Comments This 26-year-old woman presents to the emergency room with symptoms of headache, fatigue, nausea, vomiting, and diaphoresis today while at work. She is with an EDC of October 05. She denies any cough or shortness of breath but has had some congestion. She had a known Covid exposure about 9 days ago. Today she was in the walk-in cooler at work and became very hot and sweaty. She became nauseous and vomited. She denies having these symptoms at other times during her . She reports good movement today. She has not yet been tested for COVID-19. Allergies and Home Medications Allergies Coded Allergies: No Known Drug Allergies (Unverified , 06/27/10) Home Medications Docusate Sodium 100 Mg Capsule, 100 MG PO BID PRN for CONSTIPATION-1ST LINE Prescribed by: TERRENCE SELBY on 12/06/19 1240 Famotidine 20 Mg Tablet, 20 MG PO BID Prescribed by: LUCI DANIELS on 01/16/211955 Ferrous Sulfate 325 Mg Tablet, 325 MG PO DAILY@0700 Prescribed by: TERRENCE SELBY on 12/06/19 1240 Ibuprofen 600 Mg Tablet, 600 MG PO Q6H PRN for PAIN-MODERATE (5-7) Prescribed by: TERRENCE SELBY on 12/06/19 1240 Ondansetron 4 Mg Tab.rapdis, 4 MG SL Q4H PRN for NAUSEA/VOMITING Prescribed by: JONATHON GR on 07/24/21 2347 Pantoprazole Sodium 40 Mg Tablet.dr, 40 MG PO DAILY Prescribed by: LUCI DANIELS on 01/16/211955 Patient Home Medication List Home Medication List Reviewed: Yes Review of Systems Review of Systems Constitutional: see HPI EENTM: see HPI Respiratory: no symptoms reported Cardiovascular: no symptoms reported Gastrointestinal: see HPI Genitourinary: no symptoms reported : No Expected Date of Delivery: Oct 05, 2021 Musculoskeletal: no symptoms reported Skin: no symptoms reported Psychiatric/Neurological: See HPI Hematologic/Lymphatic: No Symptoms Reported Immunological/Allergic: no symptoms reported Past Uultzud-Pmorpr-Kflvvz Hx Patient Social History Tobacco Use?: No Use of E-Cig and/or Vaping dev: No Substance use?: No Alcohol Use?: No Pt feels they are or have been: No Immunizations Up To Date Tetanus Booster (TDap): Less than 5yrs Influenza Vaccine Up-to-Date: No; Not Current Seasonal Allergies Seasonal Allergies: No Past Medical History Surgeries: Yes Gallbladder Respiratory: No Cardiac: No Neurological: No Expected Date of Delivery: Oct 05, 2021 Reproductive Disorders: No Sexually Transmitted Disease: Yes HIV/AIDS: No Genitourinary: No Gastrointestinal: No Gall Bladder Disease Musculoskeletal: No Endocrine: No HEENT: No Cancer: No Psychosocial: Yes Depression Integumentary: Yes Herpes Blood Disorders: No Adverse Reaction/Blood Tranf: No Family Medical History Arthritis (Grandmother) Diabetes mellitus (Grandmother) FH: cancer (Grandfather had cancer in jaw) FH: heart failure FH: stroke (Grandfather) Hypertension (Grandmother) Myocardial infarction (Grandfather) Total blockage of heart Heart Disease, Cancer Physical Exam Vital Signs Vital Signs - First Documented 07/24/21 07/24/21 21:45 23:58 Temp 36.3 Pulse 82 Resp 18 B/P (MAP) 142/91 (108) Pulse Ox 99 O2 Delivery Room Air Capillary Refill : Height, Weight, BMI Height: 5'3" Weight: 158lbs. 0.0oz. [id number]; 34.00 BMI Method:Stated General Appearance: No Apparent Distress, WD/WN HEENT: PERRL/EOMI, Normal ENT Inspection Neck: Normal Inspection Respiratory: Lungs Clear, Normal Breath Sounds, No Accessory Muscle Use Cardiovascular: Regular Rate, Rhythm, No Edema, No Murmur Gastrointestinal: Non Tender, Soft, Other (appropriately gravid for gestational age. ) Extremity: Normal Inspection, No Pedal Edema Neurologic/Psychiatric: Alert, Oriented x3, No Motor/Sensory Deficits, Normal Mood/Affect Skin: Normal Color, Warm/Dry Procedures/Interventions Suture Size: 4-0 Progress/Results/Core Measures Suspected Sepsis SIRS Temperature: Pulse: 82 Respiratory Rate: 18 Blood Pressure 142 /91 Mean: 108 Results/Orders Lab Results Laboratory Tests Test 07/24/21 21:51 07/24/21 23:03 Range/Units Influenza Type A (RT-PCR) Not Detected Not Detecte Influenza Type B (RT-PCR) Not Detected Not Detecte SARS-CoV-2 RNA (RT-PCR) Not Detected Not Detecte Urine Color YELLOW Urine Clarity SL CLOUDY Urine pH 6.5 5-9 Urine Specific [place] 1.025 H 1.016-1.022 Urine Protein NEGATIVE NEGATIVE Urine Glucose (UA) NEGATIVE NEGATIVE Urine Ketones NEGATIVE NEGATIVE Urine Nitrite NEGATIVE NEGATIVE Urine Bilirubin NEGATIVE NEGATIVE Urine Urobilinogen 0.2 < = 1.0 MG/DL Urine Leukocyte Esterase NEGATIVE NEGATIVE Urine RBC (Auto) NEGATIVE NEGATIVE Urine RBC NONE /HPF Urine WBC NONE /HPF Urine Squamous Epithelial Cells 10-25 H /HPF Urine Crystals PRESENT H /LPF Urine Amorphous Sediment FEW ANTONELLA URATES H /LPF Urine Bacteria MODERATE H /HPF Urine Casts NONE /LPF Urine Mucus SMALL H /LPF Urine Culture Indicated NO My Orders Orders - JONATHON FISCHER MD Covid 19 Inhouse Test (07/24/21 21:23) Influenza A And B By Pcr (07/24/21 21:23) Ondansetron Oral Dissolve Tab (Zofran (07/24/21 23:45) Vital Signs/I&O 07/24/21 07/24/21 21:45 23:58 Temp 36.3 Pulse 82 83 Resp 18 18 B/P (MAP) 142/91 (108) 103/46 Pulse Ox 99 98 O2 Delivery Room Air Capillary Refill : Blood Pressure Mean: 108 Progress Note : Progress Note Patient is stable with improved condition. Zofran was given for nausea along with a prescription. Covid swab was negative. Patient was encouraged to quarantine for an additional day to complete the standard 10-day quarantine. After exposure. See discharge instructions. Departure Impression Primary Impression: Nausea and vomiting Qualified Codes: R11.2 - Nausea with vomiting, unspecified Additional Impressions: Qualified Codes: Z34.90 - Encounter for supervision of normal , unspecified, unspecified trimester Upper respiratory infection Qualified Codes: J06.9 - Acute upper respiratory infection, unspecified Exposure to COVID-19 virus Disposition: 01 HOME, SELF-CARE Condition: Improved Departure-Patient Inst. Decision time for Depature: 23:43 Referrals: NO,LOCAL PHYSICIAN (PCP/Family) Primary Care Physician Patient Instructions: Viral Upper Respiratory Infection, Adult (DC) Add. Discharge Instructions: Because of your exposure to COVID-19 you should remain in quarantine for at least 10 days from your last exposure. Drink plenty of clear liquids to stay well-hydrated. You may use Zofran (ondansetron) as prescribed for nausea vomiting. Follow-up with Dr. Selby as soon as possible. Return to the emergency room if you have worsening symptoms. All discharge instructions reviewed with patient and/or family. Voiced understanding. Scripts Ondansetron (Ondansetron Odt) 4 Mg Tab.rapdis 4 MG SL Q4H PRN for NAUSEA/VOMITING, #10 TAB Prov: JONATHON FISCHER MD 07/24/21 Work/School Note: Work Release Form Date Seen in the Emergency Department: Jul 24, 2021 Return to Work: Jul 26, 2021 Restrictions: Return-No Fever (24hrs), Return-No Vomiting(24hrs) Other Restrictions Listed Below: Return if no symptoms of infectious illness. Copy Copies To 1: TERRENCE SELBY MD, JOSHUA T MD Jul 24, 2021 23:46
[2021-07-24] MEDS ORDERED: ONDA4TAB11 SL (23:47)
[2021-07-24 23:58] VITALS: BP 103/46
== END 2021-07-24 23:58 | disposition home or self-care (01) ==
LOC: EDUNIT# 21:11 → ER 21:13
DX: O21.0 Mild hyperemesis gravidarum (principal); J06.9 Acute upper respiratory infection, unspecified; Z20.822 Contact with and (suspected) exposure to COVID-19; Z3A.00 Weeks of gestation of pregnancy not specified
CPT/HCPCS: 81000; 87636; 99283

== ENCOUNTER 2021-07-28 19:47 | Outpatient (CLI) | payer MEDICAID ==
[~2021-07-28] VITALS: Ht 157.5 cm; Wt 86.0 kg
[~2021-07-28 19:47] MED LIST changes: +ONDA4TAB11 SL
[2021-07-28 20:18] LABS: BILIRUBIN,URINE NEGATIVE (NEGATIVE); CLARITY,URINE CLOUDY; COLOR,URINE YELLOW; GLUCOSE, URINE (UA) NEGATIVE (NEGATIVE); KETONES,URINE NEGATIVE (NEGATIVE); LEUKOCYTE ESTERASE ,URINE NEGATIVE (NEGATIVE); NITRITE,URINE NEGATIVE (NEGATIVE); PROTEIN,URINE NEGATIVE (NEGATIVE)
[2021-07-28 20:20] VITALS: BP 129/69
[2021-07-28 20:25] VITALS: BP 129/69
[2021-07-28 20:59] LABS: AMORPHOUS SEDIMENT,UR LARGE AMOR URATES /LPF; BACTERIA,URINE NEGATIVE /HPF; SQUAMOUS EPITHELIAL CELL,UR 0-2 /HPF; WBC,URINE 0-2 /HPF
--- NOTE | 2021-07-29 07:52 | Physician Query-Final Dx ---
Clinic Account Progress/Dx Physician Query: Please give diagnosis Please include # weeks gestation Date of Service Jul 28, 2021 at 19:47 KATHYA MCMILLAN Jul 29, 2021 07:52
== END 2021-07-28 20:53 ==
LOC: LDRP 19:47 → WSo 19:47
PROVIDERS: ATTEND Family Medicine
DX: O62.9 Abnormality of forces of labor, unspecified (principal); Z3A.28 28 weeks gestation of pregnancy
CPT/HCPCS: 81000; 99212

== ENCOUNTER 2021-08-28 15:50 | Outpatient (CLI) | payer MEDICAID ==
[~2021-08-28] VITALS: Ht 157.5 cm; Wt 85.8 kg
[2021-08-28 16:11] LABS: BILIRUBIN,URINE NEGATIVE (NEGATIVE); CLARITY,URINE CLEAR; COLOR,URINE YELLOW; GLUCOSE, URINE (UA) NEGATIVE (NEGATIVE); KETONES,URINE NEGATIVE (NEGATIVE); LEUKOCYTE ESTERASE ,URINE NEGATIVE (NEGATIVE); NITRITE,URINE NEGATIVE (NEGATIVE); PROTEIN,URINE NEGATIVE (NEGATIVE)
[2021-08-28] MEDS ORDERED: SERT-412 PO (16:14)
[2021-08-28 16:16] VITALS: BP 138/81
[2021-08-28 16:28] LABS: RBC,URINE 0-2 /HPF
[2021-08-28 16:29] LABS: BACTERIA,URINE FEW /HPF
[2021-08-28] MEDS: LACTATED RINGERS 1,000 ML IV SCH ×2 (17:00→20:10)
[2021-08-28 17:12] LABS: BASOPHILS % (AUTO) 0 % (0-10); EOSINOPHILS # (AUTO) 0.1 10^3/uL (0.0-0.3); EOSINOPHILS % (AUTO) 1 % (0-10); HEMATOCRIT 37 % (35-52); HEMOGLOBIN 12.6 g/dL (11.5-16.0); LYMPHOCYTES # (AUTO) 2.2 10^3/uL (1.0-4.0); LYMPHOCYTES % (AUTO) 17 % (12-44); MEAN CORPUSCULAR HEMOGLOBIN 28 pg (25-34); MEAN CORPUSCULAR HGB CONC 34 g/dL (32-36); MEAN CORPUSCULAR VOLUME 83 fL (80-99); MEAN PLATELET VOLUME 9.7 fL (9.0-12.2); MONOCYTES # (AUTO) 0.6 10^3/uL (0.0-1.0); MONOCYTES % (AUTO) 5 % (0-12); NEUTROPHILS # (AUTO) 10.2 10^3/uL (1.8-7.8); NEUTROPHILS % (AUTO) 77 % (42-75); PLATELET COUNT 420 10^3/uL (130-400); WHITE BLOOD COUNT 13.2 10^3/uL (4.3-11.0)
[2021-08-28 17:31] LABS: ALBUMIN 3.6 GM/DL (3.2-4.5); BILIRUBIN,TOTAL 0.2 MG/DL (0.1-1.0); CALCIUM 9.3 MG/DL (8.5-10.1); CREATININE SERUM 0.59 MG/DL (0.60-1.30); POTASSIUM 3.4 MMOL/L (3.6-5.0)
[2021-08-28] MEDS ORDERED: ACETAMINOPHEN 500 MG TAB (TYLENOL) PO PRN (18:30)
[2021-08-28 19:18] VITALS: BP 135/71
[2021-08-28] MEDS ORDERED: TERBUTALINE INJ 1 MG/ML (BRETHINE) AMP SC ONE ×2 (19:30)
[2021-08-28] MEDS ORDERED: LACTATED RINGERS 1,000 ML IV SCH (20:10)
[2021-08-28 21:25] VITALS: BP 114/55
--- NOTE | 2021-08-30 08:14 | Physician Query-Final Dx ---
Clinic Account Progress/Dx Physician Query: Please give diagnosis Please include # weeks gestation Date of Service Aug 28, 2021 at 15:50 KATHYA MCMILLAN Aug 30, 2021 08:14
== END 2021-08-28 21:25 | disposition home or self-care (01) ==
LOC: LDRP 15:50 → WSo 15:50
PROVIDERS: ATTEND Family Medicine
DX: Z34.90 Encounter for supervision of normal pregnancy, unspecified, unspecified trimester (principal); Z3A.00 Weeks of gestation of pregnancy not specified
CPT/HCPCS: 36415; 80053; 81000; 85025; 87088; 96360; 96361; 96372; 99214

== ENCOUNTER 2021-08-31 16:02 | Outpatient (CLI) | payer MEDICAID ==
[~2021-08-31] VITALS: Ht 157.5 cm; Wt 84.9 kg
[2021-08-31 16:10] VITALS: BP 137/84
[2021-08-31 16:33] LABS: BILIRUBIN,URINE NEGATIVE (NEGATIVE); CLARITY,URINE CLEAR; COLOR,URINE YELLOW; GLUCOSE, URINE (UA) NEGATIVE (NEGATIVE); KETONES,URINE NEGATIVE (NEGATIVE); LEUKOCYTE ESTERASE ,URINE TRACE (NEGATIVE); NITRITE,URINE NEGATIVE (NEGATIVE); PROTEIN,URINE NEGATIVE (NEGATIVE)
[2021-08-31 16:44] LABS: BACTERIA,URINE MODERATE /HPF; RBC,URINE 0-2 /HPF
[2021-08-31] MEDS ORDERED: TERBUTALINE INJ 1 MG/ML (BRETHINE) AMP ONE (17:30)
[2021-08-31] MEDS ORDERED: TERBUTALINE INJ 1 MG/ML (BRETHINE) AMP SC ONE (17:30)
--- NOTE | 2021-09-01 07:58 | Physician Query-Final Dx ---
Clinic Account Progress/Dx Physician Query: Please give diagnosis Please include # weeks gestation Date of Service Aug 31, 2021 at 16:02 KATHYA MCMILLAN Sep 01, 2021 07:58
== END 2021-08-31 18:28 | disposition home or self-care (01) ==
LOC: LDRP 16:02 → WSo 16:02
PROVIDERS: ATTEND Family Medicine
DX: O62.9 Abnormality of forces of labor, unspecified (principal); Z3A.35 35 weeks gestation of pregnancy
CPT/HCPCS: 81000; 87088

== ENCOUNTER 2021-09-06 13:45 | Outpatient (CLI) | payer MEDICAID ==
[~2021-09-06] VITALS: Ht 157.5 cm; Wt 86.0 kg
[2021-09-06] VITALS (11 sets, daily range): BP systolic 127–139; BP diastolic 72–82
--- NOTE | 2021-09-06 15:49 | Clinic Account Progress/Dx ---
Clinic Account Progress/Dx DIAGNOSIS: Date Seen by Provider: Sep 06, 2021 Time Seen by Provider: 15:30 Elevated blood pressure in third trimester- severe range at clinic one check, no significantly elevated at Labor, preeclampsia labs neg, BPP 07/04 35 weeks gestation TERRENCE SELBY MD Sep 06, 2021 15:49
--- NOTE | 2021-09-06 16:58 | Diagnostic Imaging Report ---
INDICATION: New onset hypertension. GESTATIONAL AGE: 35 weeks and 6 days COMPARISON: None. Biophysical Profile Score: Movement: 2 Breathin Tone: 2 Fluid: 2 Total: 07/04 Heart Rate: 149 BPM Presentation is anterior. Placenta is cephalic. OLGA is 18.5cm. The single largest vertical pocket is 8.5 cm. IMPRESSION: Normal Biophysical Profile Score. Dictated by: Dictated on workstation # [id number]
== END 2021-09-06 16:30 | disposition home or self-care (01) ==
LOC: LDRP 13:45 → WSo 13:45
PROVIDERS: ATTEND Family Medicine
DX: O16.3 Unspecified maternal hypertension, third trimester (principal); Z3A.35 35 weeks gestation of pregnancy
CPT/HCPCS: 76819; 99213

== ENCOUNTER → 2021-09-06 | Outpatient (CLI) | payer MEDICAID ==
[2021-09-06 11:47] LABS: ALBUMIN 3.7 GM/DL (3.2-4.5); BILIRUBIN,TOTAL 0.3 MG/DL (0.1-1.0); CALCIUM 9.4 MG/DL (8.5-10.1); CREATININE SERUM 0.62 MG/DL (0.60-1.30); POTASSIUM 3.6 MMOL/L (3.6-5.0); TOTAL PROTEIN 7.2 GM/DL (6.4-8.2)
[2021-09-06 13:12] LABS: BASOPHILS % (AUTO) 0 % (0-10); EOSINOPHILS # (AUTO) 0.1 10^3/uL (0.0-0.3); EOSINOPHILS % (AUTO) 1 % (0-10); HEMATOCRIT 36 % (35-52); HEMOGLOBIN 12.1 g/dL (11.5-16.0); LYMPHOCYTES # (AUTO) 1.5 10^3/uL (1.0-4.0); LYMPHOCYTES % (AUTO) 16 % (12-44); MEAN CORPUSCULAR HEMOGLOBIN 28 pg (25-34); MEAN CORPUSCULAR HGB CONC 34 g/dL (32-36); MEAN CORPUSCULAR VOLUME 83 fL (80-99); MEAN PLATELET VOLUME 9.9 fL (9.0-12.2); MONOCYTES # (AUTO) 0.4 10^3/uL (0.0-1.0); MONOCYTES % (AUTO) 4 % (0-12); NEUTROPHILS # (AUTO) 7.5 10^3/uL (1.8-7.8); NEUTROPHILS % (AUTO) 79 % (42-75); PLATELET COUNT 426 10^3/uL (130-400); WHITE BLOOD COUNT 9.6 10^3/uL (4.3-11.0)
[2021-09-06 13:23] LABS: URIC ACID 4.3 MG/DL (2.6-7.2)
== END ==
LOC: LAB 10:42
PROVIDERS: ATTEND Family Medicine
DX: Z34.93 Encounter for supervision of normal pregnancy, unspecified, third trimester (principal); Z3A.00 Weeks of gestation of pregnancy not specified
CPT/HCPCS: 36415; 80053; 82570; 83615; 84156; 84550; 85025

== ENCOUNTER 2021-09-14 10:54 | Outpatient (CLI) | payer MEDICAID ==
[2021-09-14] VITALS (9 sets, daily range): BP systolic 122–135; BP diastolic 71–89
[~2021-09-14] VITALS: Ht 157 cm; Wt 86.3 kg
[2021-09-14 11:28] LABS: BASOPHILS % (AUTO) 0 % (0-10); EOSINOPHILS # (AUTO) 0.1 10^3/uL (0.0-0.3); EOSINOPHILS % (AUTO) 1 % (0-10); HEMATOCRIT 34 % (35-52); HEMOGLOBIN 11.7 g/dL (11.5-16.0); LYMPHOCYTES # (AUTO) 1.6 10^3/uL (1.0-4.0); LYMPHOCYTES % (AUTO) 15 % (12-44); MEAN CORPUSCULAR HEMOGLOBIN 27 pg (25-34); MEAN CORPUSCULAR HGB CONC 34 g/dL (32-36); MEAN CORPUSCULAR VOLUME 81 fL (80-99); MEAN PLATELET VOLUME 9.3 fL (9.0-12.2); MONOCYTES # (AUTO) 0.5 10^3/uL (0.0-1.0); MONOCYTES % (AUTO) 5 % (0-12); NEUTROPHILS # (AUTO) 8.7 10^3/uL (1.8-7.8); NEUTROPHILS % (AUTO) 79 % (42-75); PLATELET COUNT 443 10^3/uL (130-400)
[2021-09-14 11:40] LABS: ALBUMIN 3.5 GM/DL (3.2-4.5); POTASSIUM 3.6 MMOL/L (3.6-5.0)
[2021-09-14 11:42] LABS: CALCIUM 9.4 MG/DL (8.5-10.1)
[2021-09-14 11:43] LABS: TOTAL PROTEIN 6.6 GM/DL (6.4-8.2)
[2021-09-14 11:45] LABS: BILIRUBIN,TOTAL 0.2 MG/DL (0.1-1.0)
[2021-09-14 11:46] LABS: CREATININE SERUM 0.65 MG/DL (0.60-1.30)
[2021-09-14 11:49] LABS: URIC ACID 3.6 MG/DL (2.6-7.2)
--- NOTE | 2021-09-15 08:30 | Physician Query-Final Dx ---
Clinic Account Progress/Dx Physician Query: Please give diagnosis Please include # weeks gestation Date of Service Sep 14, 2021 at 10:54 KATHYA MCMILLAN Sep 15, 2021 08:30
== END 2021-09-14 13:07 ==
LOC: WSo 10:54 → LDRP 10:56 → WSo 13:07
PROVIDERS: ATTEND Family Medicine
DX: O13.9 Gestational [pregnancy-induced] hypertension without significant proteinuria, unspecified trimester (principal); Z3A.00 Weeks of gestation of pregnancy not specified
CPT/HCPCS: 36415; 80053; 82570; 83615; 84156; 84550; 85025; 99213

== ENCOUNTER 2021-09-22 06:32 | Inpatient (IN) | payer MEDICAID ==
[2021-09-22] VITALS (45 sets, daily range): BP systolic 115–168; BP diastolic 6–91
[2021-09-22] MEDS ORDERED: AMPICILLIN FOR IV USE 2,000 MG in WATER (STERILE) FOR INJECTION 14.8 ML IV SCH (07:41)
[2021-09-22] MEDS ORDERED: D5 LR IV SOLUTION 1,000 ML IV SCH (07:45)
[2021-09-22 07:56] LABS: BILIRUBIN,URINE NEGATIVE (NEGATIVE); CLARITY,URINE CLEAR; COLOR,URINE YELLOW; GLUCOSE, URINE (UA) NEGATIVE (NEGATIVE); KETONES,URINE NEGATIVE (NEGATIVE); LEUKOCYTE ESTERASE ,URINE NEGATIVE (NEGATIVE); NITRITE,URINE NEGATIVE (NEGATIVE); PROTEIN,URINE NEGATIVE (NEGATIVE)
[2021-09-22 08:02] LABS: BACTERIA,URINE TRACE /HPF
--- NOTE | 2021-09-22 08:13 | History & Physical-OB ---
OB - Chief Complaint & HPI Date/Time Date of Admission: Date of Admission: Sep 22, 2021 at 06:32 Date seen by a Provider: Sep 22, 2021 Time Seen by a Provider: 08:07 Chief Complaint/History OB-Reason for Admission/Chief: Obstetrical Complication Hx : 4 Hx Para: 3 Expected Date of Delivery: Oct 05, 2021 Gestational Age in Weeks: 38 Gestational Age in Days: 1 Indication for induction: medical complication History of Labs O+, antibody neg, RI. HIV/HepB/RPR NR. GC/chlamydia neg. Mild peristent thrombocytosis. Glucola neg. GBS pos. Other with complicated by depression, treated with sertraline and history of HSV with no outbreaks during this , and tobacco use, developed gestational hypertension with first BP above 140/90 at 24 weeks, but remained normal after until 35 weeks at which point began to have worsening elevations, up to occasional above 160/100. Preeclampsia labs neg and weekly BPP okay, at 37 weeks BPP 07/06 with OLGA 18, EFW 3034. Allergies and Home Medications Allergies Coded Allergies: No Known Drug Allergies (Unverified , 06/27/10) Patient Home Medication List Home Medication List Reviewed: Yes [id number]/Iron Fumarate/FA/Dss ( 19 Tablet) 1 Each Tablet, 1 EACH PO, (Reported) Entered as Reported by: MIGUEL JEAN on 11/26/191932 Last Action: Reviewed Sertraline HCl (Sertraline HCl) 25 Mg Tablet, 150 MG PO DAILY Prescribed by: MARCUS THOMSON on 08/28/21 1614 Last Action: Reviewed Valacyclovir HCl (Valacyclovir) 500 Mg Tablet, 500 MG PO BID, (Reported) Entered as Reported by: TERRENCE SELBY on 09/22/21 1759 Last Action: Reviewed OB - History Hx of Present Care: Yes Ultrasounds: Normal mid trimester US Obstetrical Complications: Gestational Hypertension Medical Complications: Psychiatric Information Induced Hypertension: Yes Maternal Gestational Diabetes: No Hemorrhage: No Obstetrical History Hx : 4 Hx Para: 3 Hx # Term Pregnancies: 3 Hx # Pregnancies: 0 Number of Living Children: 3 Hx Termination: No Hx Multiple Gestation: No Hx Stillbirth: No Hx Complication: No Hx Induced Hypertens: No Hx Maternal Gestational Diabet: No Hx Hemorrhage: No Delivery History Hx Dystocia: No Hx Forceps Assisted Delivery: No Hx Vacuum Extraction Assisted: No Hx Placenta Abnormality: No Hx Distress: No Hx Large For Gestational Age I: No Hx Small for Gestational Age I: No Hx Section: No Hx Vaginal Delivery Post C-Sec: No Hx Blood Disorders: No Adverse Rxn to Tranfusion: No Patient Past Medical History Depression Genital herpes Social History/Family History Alcohol Use: Denies Use Recreational Drug Use: No Smoking Cessation: Current every day smoker 2nd Hand Smoke Exposure: No Immunizations Hepatitis A: Yes Hepatitis B: Yes Tetanus Booster (TDap): Less than 5yrs Date of Influenza Vaccine: Aug 12, 2021 OB - Admission Exam Physical Exam HEENT: NCAT Abdomen: Non tender Extremities: Normal Cervical Dilatation: 4cm Effacement: 25% Station: -3 Membranes: Intact Heart Rate: 140's Accelerations: Accelerations Present Decelerations: No Decelerations Short Term Variability: Present Consumer Attorney Variability: Average (6-25) Contractions on Admission: < 5 Minutes Apart Hope Scoring Tool (Modified) Dilation (cm): 3-4cm (2) Effacement (%): 0-30% (0) Descent/Station: -3 (0) Cervix Consistency: Soft (2) Cervix Position: Anterior (2) Add 1 point for: Each previous vaginal delivery (1) (3) Hope Score: 9 Labs Laboratory Tests Test 09/22/21 07:30 Range/Units Urine Color YELLOW Urine Clarity CLEAR Urine pH 7.0 5-9 Urine Specific [place] 1.010 L 1.016-1.022 Urine Protein NEGATIVE NEGATIVE Urine Glucose (UA) NEGATIVE NEGATIVE Urine Ketones NEGATIVE NEGATIVE Urine Nitrite NEGATIVE NEGATIVE Urine Bilirubin NEGATIVE NEGATIVE Urine Urobilinogen 0.2 < = 1.0 MG/DL Urine Leukocyte Esterase NEGATIVE NEGATIVE Urine RBC (Auto) NEGATIVE NEGATIVE Urine RBC NONE /HPF Urine WBC NONE /HPF Urine Squamous Epithelial Cells 2-5 /HPF Urine Crystals NONE /LPF Urine Bacteria TRACE /HPF Urine Casts NONE /LPF Urine Mucus NEGATIVE /LPF Urine Culture Indicated NO OB - Assessment/Plan/Diagnosis Assessment Admission Dx Gestational hypertension Term intrauterine 38 weeks gestation GBS positive Induction of labor History of HSV Tobacco use Depression Admission Status: Inpatient Order (span 2 midnights) Reason for Inpatient Admission: Labor, delivery and course Plan Plan: Induction Induction Method: per Pitocin Protocol Problems: (1) Gestational hypertension Assessment & Plan: Check preeclampsia labs with admission labs, IOL for worsening GHTN, monitor BP closely and treat if above 160/110. Qualifiers: Qualified Codes: O13.3 - Gestational [-induced] hypertension without significant proteinuria, third trimester (2) Group B streptococcal carriage complicating Assessment & Plan: Ampicillin (3) Depression Assessment & Plan: Continue home sertraline Qualifiers: Qualified Codes: F33.0 - Major depressive disorder, recurrent, mild (4) History of herpes genitalis Assessment & Plan: On valacylcovir suppression treatment, denies prodromal symptoms, no external lesions noted on initial exam. TERRENCE SELBY MD Sep 22, 2021 08:13
[2021-09-22] MEDS ORDERED: OXYTOCIN PRE-MIX DRIP 500 ML IV SCH ×2 (08:15→19:30)
[2021-09-22 08:37] LABS: BASOPHILS % (AUTO) 0 % (0-10); EOSINOPHILS # (AUTO) 0.1 10^3/uL (0.0-0.3); EOSINOPHILS % (AUTO) 1 % (0-10); HEMATOCRIT 35 % (35-52); HEMOGLOBIN 11.6 g/dL (11.5-16.0); LYMPHOCYTES # (AUTO) 1.9 10^3/uL (1.0-4.0); LYMPHOCYTES % (AUTO) 18 % (12-44); MEAN CORPUSCULAR HEMOGLOBIN 27 pg (25-34); MEAN CORPUSCULAR HGB CONC 34 g/dL (32-36); MEAN CORPUSCULAR VOLUME 81 fL (80-99); MEAN PLATELET VOLUME 9.5 fL (9.0-12.2); MONOCYTES # (AUTO) 0.7 10^3/uL (0.0-1.0); MONOCYTES % (AUTO) 7 % (0-12); NEUTROPHILS # (AUTO) 7.6 10^3/uL (1.8-7.8); NEUTROPHILS % (AUTO) 73 % (42-75); PLATELET COUNT 400 10^3/uL (130-400); WHITE BLOOD COUNT 10.5 10^3/uL (4.3-11.0)
[2021-09-22 09:00] LABS: ALBUMIN 3.6 GM/DL (3.2-4.5); BILIRUBIN,TOTAL 0.2 MG/DL (0.1-1.0); CALCIUM 9.6 MG/DL (8.5-10.1); CREATININE SERUM 0.58 MG/DL (0.60-1.30); POTASSIUM 3.8 MMOL/L (3.6-5.0); TOTAL PROTEIN 6.8 GM/DL (6.4-8.2); URIC ACID 3.7 MG/DL (2.6-7.2)
[2021-09-22] MEDS ORDERED: fentaNYL 2 mcg/ml BUPIVA 0.125 100 ML ONE (09:32)
[2021-09-22] MEDS ORDERED: BUPIVACAINE 0.25% 30 ML (SENSORCAINE) VIAL ONE (09:57)
[2021-09-22] MEDS ORDERED: fentaNYL INJ 100 MCG/2 ML AMP ONE (09:57)
[2021-09-22] MEDS ORDERED: NALOXONE 0.4 MG/ML 1 ML (NARCAN) VIAL IV PRN (10:00)
[2021-09-22] MEDS ORDERED: LACTATED RINGERS 1,000 ML IV ONE (10:00)
[2021-09-22] MEDS ORDERED: CATHETER FLUSH 10 ML SYR IV PRN (10:00)
[2021-09-22] MEDS ORDERED: diphenhydrAMINE 50 MG/ML INJ (BENADRYL) IV PRN (10:00)
[2021-09-22] MEDS ORDERED: ONDANSETRON 4 MG/2 ML (SDV) Z0FRAN IV PRN (10:00)
[2021-09-22] MEDS ORDERED: fentaNYL 2 mcg/ml BUPIVA 0.125 100 ML IV SCH (10:00)
[2021-09-22] MEDS: AMPICILLIN FOR IV USE 1,000 MG in WATER (STERILE) FOR INJECTION 7.4 ML IV SCH ×2 (12:08→16:27)
--- NOTE | 2021-09-22 13:12 | Labor Progress Note ---
Labor Progress Note Labor Progress Note Date Seen by Provider: Sep 22, 2021 Time Seen by Provider: 13:11 Subjective: Pt denies complaints. Objective: Cervical exam: /-3 Consistency: soft Position: anterior Presentation: Vertex heart tones: 150 beats per minute, moderate variability, reactive Tocometer: 3-4 ctx/10 minutes Assessment/Plan: Victorina Chapa is a (26 /Para 4 / 3,Gestational Age (wks)38 here for IOL for GHTN. AROM done at time of exam with clear fluid return. CEFM/TOCO Continue pitocin Anesthesia: epidural Anticipate vaginal delivery. Vitals - Labs Vital Signs - I&O Vital Signs Date Time Temp Pulse Resp B/P (MAP) Pulse Ox O2 Delivery O2 Flow Rate FiO2 09/22/21 07:22 36.1 88 18 135/85 (102) 98 Room Air 09/22/21 07:22 36.1 88 18 98 Room Air Labs Laboratory Tests 09/22/21 07:30: Urine Color YELLOW, Urine Clarity CLEAR, Urine pH 7.0, Urine Specific [place] 1.010L, Urine Protein 8, Urine Glucose (UA) NEGATIVE, Urine Ketones NEGATIVE, Urine Nitrite NEGATIVE, Urine Bilirubin NEGATIVE, Urine Urobilinogen 0.2, Urine Leukocyte Esterase NEGATIVE, Urine RBC (Auto) NEGATIVE, Urine RBC NONE, Urine WBC NONE, Urine Squamous Epithelial Cells 2-5, Urine Crystals NONE, Urine Bacteria TRACE, Urine Casts NONE, Urine Mucus NEGATIVE, Urine Culture Indicated NO, Urine Creatinine 64, Urine Protein/Creatinine Ratio 0.13 09/22/21 08:25: White Blood Count 10.5, Red Blood Count 4.27, Hemoglobin 11.6, Hematocrit 35, Mean Corpuscular Volume 81, Mean Corpuscular Hemoglobin 27, Mean Corpuscular Hemoglobin Concent 34, Red Cell Distribution Width 14.2, Platelet Count 400, Mean Platelet Volume 9.5, Immature Granulocyte % (Auto) 1, Neutrophils (%) (Auto) 73, Lymphocytes (%) (Auto) 18, Monocytes (%) (Auto) 7, Eosinophils (%) (Auto) 1, Basophils (%) (Auto) 0, Neutrophils # (Auto) 7.6, Lymphocytes # (Auto) 1.9, Monocytes # (Auto) 0.7, Eosinophils # (Auto) 0.1, Basophils # (Auto) 0.0, Immature Granulocyte # (Auto) 0.1, Sodium Level 135, Potassium Level 3.8, Chloride Level 105, Carbon Dioxide Level 17L, Anion Gap 13, Blood Urea Nitrogen 5L, Creatinine 0.58L, Estimat Glomerular Filtration Rate 125, BUN/Creatinine Ra evelyn 9, Glucose Level 81, Uric Acid 3.7, Calcium Level 9.6, Corrected Calcium 9.9, Total Bilirubin 0.2, Aspartate Amino Transf (AST/SGOT) 16, Alanine Aminotransferase (ALT/SGPT) 14, Alkaline Phosphatase 114, Lactate Dehydrogenase 156, Total Protein 6.8, Albumin 3.6 TERRENCE SELBY MD Sep 22, 2021 13:12
[2021-09-22] MEDS ORDERED: CATHETER FLUSH 10 ML SYR IV SCH (14:00)
[2021-09-22] MEDS ORDERED: METOCLOPRAMIDE INJ 10 MG/2 ML (REGLAN) IVP PRN (14:00)
[2021-09-22] MEDS ORDERED: VALA500T7 PO (17:59)
--- NOTE | 2021-09-22 18:02 | OB Labor & Delivery Record ---
Vag Delivery Note Vag Delivery Note Date of Delivery: 09/22/21 Preoperative Diagnosis: Victorina Chapa is a (26 /Para 4 / 3,Gestational Age (wks)38with 1 day Postoperative Diagnosis: Same Surgeon: TERRENCE SELBY Anesthesia: Epidural Delivery Type: Findings: Viable female infant, apgars 6/9, weight 6#6 Lacerations: left labial Intact placenta with 3 vessel cord. No nuchal cord, body cord or shoulder dystocia Estimated Blood Loss: 250 ml Complications: None Condition: Stable Description of Procedure: The patient is a 26 year old female who presented for IOL for GHTN. She was admitted and informed consent was obtained. Her labor course was remarkable for recurrent decels when complete. She progressed to complete dilatation and began to push. She was then set up for delivery. The 's head was delivered atraumatically in the OA position. The shoulders and remainder of the infant's body were then delivered without difficulty. Upon delivery, the was placed on maternal abdomen and was noted to have good respiratory effort but without cry. After a brief delay the cord was doubly clamped and cut and the infant was handed off to the pediatric staff. An intact placenta with 3-vessel cord delivered via Laura and there was found to be minimal bleeding.~ Vigorous fundal massage was performed and the fundus was found to be firm. IV oxytocin was given. Examination of the vagina and perineum revealed a left labial laceration repaired in the simple running fashion with 3-0 rapide. Following the repair, sponge, instrument and needle counts were correct. Mom and baby were both in stable condition in the labor suite. Vitals - Labs Vital Signs - I&O Vital Signs Date Time Temp Pulse Resp B/P (MAP) Pulse Ox O2 Delivery O2 Flow Rate FiO2 09/22/21 14:00 78 18 121/78 (92) 98 Room Air 09/22/21 13:45 70 18 122/74 (90) 98 Room Air 09/22/21 13:30 80 18 117/70 (86) 99 Room Air 09/22/21 13:15 75 18 139/75 (96) 100 Room Air 09/22/21 13:00 72 18 125/80 (95) 100 Room Air 09/22/21 12:45 72 18 100 Room Air 09/22/21 12:30 72 18 127/77 (94) 95 Room Air 09/22/21 12:15 69 18 130/74 (92) 100 Room Air 09/22/21 12:10 35.5 09/22/21 12:00 86 18 115/63 (80) 93 Room Air 09/22/21 11:45 67 18 117/74 (88) 99 Room Air 09/22/21 11:30 73 18 121/71 (88) 99 Room Air 09/22/21 11:15 69 18 124/73 (90) 100 Room Air 09/22/21 11:00 64 18 132/72 (92) 98 Room Air 09/22/21 10:45 77 18 132/72 (92) 98 Room Air 09/22/21 10:30 73 18 128/58 (81) 98 Room Air 09/22/21 10:25 88 18 135/85 (102) 99 Room Air 09/22/21 10:20 85 18 137/74 (95) 99 Room Air 09/22/21 10:15 75 18 147/79 (101) 99 Room Air 09/22/21 10:10 75 18 162/88 (112) 100 Room Air 09/22/21 10:00 78 18 168/82 (110) 100 Room Air 09/22/21 09:45 67 18 137/91 (106) Room Air 09/22/21 09:30 70 18 139/89 (106) Room Air 09/22/21 09:15 79 18 135/87 (103) Room Air 09/22/21 09:00 90 18 144/89 (107) Room Air 09/22/21 08:45 73 18 153/88 (109) Room Air 09/22/21 07:22 36.1 88 18 135/85 (102) 98 Room Air 09/22/21 07:22 36.1 88 18 98 Room Air Labs Laboratory Tests 09/22/21 07:30: Urine Color YELLOW, Urine Clarity CLEAR, Urine pH 7.0, Urine Specific [place] 1.010L, Urine Protein 8, Urine Glucose (UA) NEGATIVE, Urine Ketones NEGATIVE, Urine Nitrite NEGATIVE, Urine Bilirubin NEGATIVE, Urine Urobilinogen 0.2, Urine Leukocyte Esterase NEGATIVE, Urine RBC (Auto) NEGATIVE, Urine RBC NONE, Urine WBC NONE, Urine Squamous Epithelial Cells 2-5, Urine Crystals NONE, Urine Bacteria TRACE, Urine Casts NONE, Urine Mucus NEGATIVE, Urine Culture Indicated NO, Urine Creatinine 64, Urine Protein/Creatinine Ratio 0.13 09/22/21 08:25: White Blood Count 10.5, Red Blood Count 4.27, Hemoglobin 11.6, Hematocrit 35, Mean Corpuscular Volume 81, Mean Corpuscular Hemoglobin 27, Mean Corpuscular Hemoglobin Concent 34, Red Cell Distribution Width 14.2, Platelet Count 400, Mean Platelet Volume 9.5, Immature Granulocyte % (Auto) 1, Neutrophils (%) (Auto) 73, Lymphocytes (%) (Auto) 18, Monocytes (%) (Auto) 7, Eosinophils (%) (Auto) 1, Basophils (%) (Auto) 0, Neutrophils # (Auto) 7.6, Lymphocytes # (Auto) 1.9, Monocytes # (Auto) 0.7, Eosinophils # (Auto) 0.1, Basophils # (Auto) 0.0, Immature Granulocyte # (Auto) 0.1, Sodium Level 135, Potassium Level 3.8, Chloride Level 105, Carbon Dioxide Level 17L, Anion Gap 13, Blood Urea Nitrogen 5L, Creatinine 0.58L, Estimat Glomerular Filtration Rate 125, BUN/Creatinine Ratio 9, Glucose Level 81, Uric Acid 3.7, Calcium Level 9.6, Corrected Calcium 9.9, Total Bilirubin 0.2, Aspartate Amino Transf (AST/SGOT) 16, Alanine Aminotransferase (ALT/SGPT) 14, Alkaline Phosphatase 114, Lactate Dehydrogenase 156, Total Protein 6.8, Albumin 3.6 TERRENCE SELBY MD Sep 22, 2021 18:02
[2021-09-22] MEDS ORDERED: BENZOCAINE/MENTHOL (DERMOPLAST) 56 ML CAN TP PRN (19:30)
[2021-09-22] MEDS ORDERED: WITCH HAZEL(TUCKS) 40 EA JAR TOP PRN (19:30)
[2021-09-22] MEDS: IBUPROFEN 600 MG (MOTRIN) TAB PO PRN (20:30)
[2021-09-22] MEDS: SERTRALINE 100 MG (ZOLOFT) TAB PO SCH (20:30)
[2021-09-22] MEDS: DOCUSATE SODIUM 100 MG (COLACE) CAP PO SCH (20:30)
[2021-09-23] VITALS: BP 127/66
[2021-09-23] MEDS: IBUPROFEN 600 MG (MOTRIN) TAB PO PRN ×4 (02:56→20:53)
[2021-09-23 04:00] VITALS: BP 133/76
[2021-09-23] MEDS: PRENATAL VITAMIN 1 EA TAB PO SCH (06:00)
[2021-09-23 06:04] LABS: BASOPHILS % (AUTO) 0 % (0-10); EOSINOPHILS # (AUTO) 0.2 10^3/uL (0.0-0.3); EOSINOPHILS % (AUTO) 1 % (0-10); HEMATOCRIT 30 % (35-52); HEMOGLOBIN 10.2 g/dL (11.5-16.0); LYMPHOCYTES # (AUTO) 2.3 10^3/uL (1.0-4.0); LYMPHOCYTES % (AUTO) 17 % (12-44); MEAN CORPUSCULAR HEMOGLOBIN 28 pg (25-34); MEAN CORPUSCULAR HGB CONC 35 g/dL (32-36); MEAN CORPUSCULAR VOLUME 82 fL (80-99); MEAN PLATELET VOLUME 9.8 fL (9.0-12.2); MONOCYTES # (AUTO) 0.7 10^3/uL (0.0-1.0); MONOCYTES % (AUTO) 5 % (0-12); NEUTROPHILS # (AUTO) 10.5 10^3/uL (1.8-7.8); NEUTROPHILS % (AUTO) 76 % (42-75); PLATELET COUNT 340 10^3/uL (130-400); WHITE BLOOD COUNT 13.8 10^3/uL (4.3-11.0)
[2021-09-23] MEDS: CATHETER FLUSH 10 ML SYR IV SCH ×3 (06:23→22:10)
[2021-09-23 08:05] VITALS: BP 117/71
[2021-09-23] MEDS: DOCUSATE SODIUM 100 MG (COLACE) CAP PO SCH ×2 (08:28→20:52)
[2021-09-23 12:10] VITALS: BP 130/71
--- NOTE | 2021-09-23 13:43 | Anesthesia-Regional Post-Op ---
Regional Patient Condition Mental Status: Alert, Oriented x3 Circulation: Same as Pre-Op Headache: Absent Sensation: Full Recovery Motor Block: Absent Post Op Complications Complications None Follow Up Care/Instructions Patient Instructions None needed. Anesthesia/Patient Condition Patient is doing well, no complaints, stable vital signs, no apparent adverse anesthesia problems. No complications reported per nursing. LATOYA HAMPTON CRNA Sep 23, 2021 13:43
--- NOTE | 2021-09-23 15:39 | Postpartum Progress Note ---
Note Note Day # 1 Subjective: Patient is without complaints. Ambulating, voiding. Tolerating a regular diet without nausea or vomiting. Normal lochia. Pain is well controlled with oral pain medications. Breast/Bottle feeding. Objective: Physical Exam: General - Alert and oriented, no apparent distress Abdomen - Soft, appropriately tender to palpation, non-distended, fundus firm at umbilicus Extremities - no edema, negative Lulu's bilaterally Assessment: 27 G4 now P4 post- day # 1, status post spontaneous vaginal delivery. Recovering well, hemodynamically stable GHTN Mild Post Anemia Plan: Routine care. GHTN: blood pressures controlled after delivery, has not required treatment Encourage breast feeding and pumping, consult Encourage ambulation. Ferrous sulfate supplementation and continue PNV Plan for discharge tomorrow Vitals - Labs Vital Signs - I&O Vital Signs Date Time Temp Pulse Resp B/P (MAP) Pulse Ox O2 Delivery O2 Flow Rate FiO2 09/23/21 12:10 36.6 86 16 130/71 (90) 97 Room Air 09/23/21 08:05 36.5 75 16 117/71 (86) 98 Room Air 09/23/21 04:00 36.4 67 16 133/76 (95) 98 Room Air 09/23/21 00:00 36.7 75 16 127/66 (86) 98 Room Air 09/22/21 19:53 81 18 140/78 (98) Room Air 09/22/21 19:30 95 18 132/80 (97) Room Air 09/22/21 19:15 70 18 132/75 (94) Room Air 09/22/21 19:00 67 18 131/85 (100) Room Air 09/22/21 18:30 36.9 73 18 134/78 (96) Room Air 09/22/21 18:15 65 18 144/75 (98) Room Air 09/22/21 18:00 83 18 145/79 (101) Room Air 09/22/21 17:45 37.0 70 18 138/78 (98) Room Air 09/22/21 17:30 77 18 146/73 (97) Room Air 09/22/21 17:15 62 18 140/65 (90) 100 Room Air 09/22/21 17:00 60 18 98 Room Air 09/22/21 16:45 67 18 145/76 (99) 99 Room Air 09/22/21 16:30 71 18 132/84 (100) 99 Room Air 09/22/21 16:15 72 18 127/67 (87) 99 Room Air 09/22/21 16:00 82 18 130/76 (94) 97 Room Air 09/22/21 15:45 74 18 126/80 (95) 97 Room Air I & O 09/23/21 07:00 Intake Total 2141.7 ml Balance 2141.7 ml Labs Laboratory Tests 09/23/21 05:33: White Blood Count 13.8H, Red Blood Count 3.59L, Hemoglobin 10.2L, Hematocrit 30L , Mean Corpuscular Volume 82, Mean Corpuscular Hemoglobin 28, Mean Corpuscular Hemoglobin Concent 35, Red Cell Distribution Width 14.2, Platelet Count 340, Mean Platelet Volume 9.8, Immature Granulocyte % (Auto) 1, Neutrophils (%) (Auto) 76H, Lymphocytes (%) (Auto) 17, Monocytes (%) (Auto) 5, Eosinophils (%) (Auto) 1, Basophils (%) (Auto) 0, Neutrophils # (Auto) 10.5H, Lymphocytes # (Auto) 2.3, Monocytes # (Auto) 0.7, Eosinophils # (Auto) 0.2, Basophils # (Auto) 0.0, Immature Granulocyte # (Auto) 0.1 ASHLEY AYALA MD Sep 23, 2021 15:39
[2021-09-23 16:05] VITALS: BP 140/74
[2021-09-23 20:00] VITALS: BP 135/78
[2021-09-23] MEDS: SERTRALINE 100 MG (ZOLOFT) TAB PO SCH (20:52)
[2021-09-24 00:18] VITALS: BP 124/75
[2021-09-24] MEDS: IBUPROFEN 600 MG (MOTRIN) TAB PO PRN ×2 (03:08→08:53)
[2021-09-24 04:00] VITALS: BP 129/75
[2021-09-24] MEDS: PRENATAL VITAMIN 1 EA TAB PO SCH (05:56)
[2021-09-24] MEDS: CATHETER FLUSH 10 ML SYR IV SCH (06:05)
[2021-09-24 08:53] VITALS: BP 132/68
[2021-09-24] MEDS: DOCUSATE SODIUM 100 MG (COLACE) CAP PO SCH (08:53)
--- NOTE | 2021-09-24 10:26 | Discharge Summary ---
Diagnosis/Chief Complaint Date of Admission Sep 22, 2021 at 06:32 Date of Discharge Discharge Summary-Simple/Stand Discharge Physical Examination Allergies: Coded Allergies: No Known Drug Allergies (Unverified , 06/27/10) Vitals & I&Os Vital Sign - Last 12Hours Date Time Temp Pulse Resp B/P (MAP) Pulse Ox O2 Delivery O2 Flow Rate FiO2 09/24/21 08:53 36.4 75 16 132/68 (89) 98 Room Air Hospital Course See final discharge diagnosis. Discharge Instructions to patient/family Please see electronic discharge instructions given to patient. Discharge Medications Reviewed and agree with Discharge Medication list on patient's Discharge Instruction sheet ASHLEY AYALA MD Sep 24, 2021 10:26
[2021-09-24] MEDS ORDERED: IBUP-844 PO (10:27)
--- NOTE | 2021-09-24 10:28 | Discharge Summary ---
Discharge Inst-[facility] Reconcile Patient Problems Problems Reviewed?: Yes Depart Medications New, Converted or Re-Newed RX: Transmitted to Pharmacy New Medications: Ibuprofen (Ibu) 600 Mg Tablet 600 MG PO Q6HR PRN for PAIN-MILD (1-4), #90 TAB Continued Medications: [id number]/Iron Fumarate/FA/Dss ( 19 Tablet) 1 Each Tablet 1 EACH PO, TAB Sertraline HCl (Sertraline HCl) 25 Mg Tablet 150 MG PO DAILY for 30 Days, TAB Discontinued Medications: Valacyclovir HCl (Valacyclovir) 500 Mg Tablet 500 MG PO BID Follow Up/Instructions Goal/Follow Up: 6 weeks with Arron Activity Activity: Activity as Tolerated Driving Instructions: You May Drive NO SMOKING: NO SMOKING Nothing Inside Vagina: No Douching, No Reagan, No Tampons Diet Discharge Diet: No Restrictions Symptoms to Report to : Swelling Increased, Bleeding Excessive, Fever Over 101 Degrees F, Pain/Pressure in Shoulder, Shortness of Breath For Any Problems or Questions: Contact Your Physician Copies To 1: TERRENCE SELBY MD, HOLLY R MD Sep 24, 2021 10:28
[2021-09-24 12:04] VITALS: BP 115/76
== END 2021-09-24 13:25 | disposition home or self-care (01) | DRG 806 ==
LOC: LDRP 06:32
PROVIDERS: ADMIT Family Medicine; ATTEND Family Medicine
PROC: 10E0XZZ Delivery of Products of Conception, External Approach (ICD-10-PCS; principal; 2021-09-22)
PROC: 0HQ9XZZ Repair Perineum Skin, External Approach (ICD-10-PCS; 2021-09-22)
PROC: 3E033VJ Introduction of Other Hormone into Peripheral Vein, Percutaneous Approach (ICD-10-PCS; 2021-09-22)
DX: O13.4 Gestational [pregnancy-induced] hypertension without significant proteinuria, complicating childbirth (principal); O98.32 Other infections with a predominantly sexual mode of transmission complicating childbirth; Z37.0 Single live birth; O70.0 First degree perineal laceration during delivery; O99.344 Other mental disorders complicating childbirth; F32.A Depression, unspecified; O99.824 Streptococcus B carrier state complicating childbirth; O99.334 Smoking (tobacco) complicating childbirth; Z3A.38 38 weeks gestation of pregnancy; F17.200 Nicotine dependence, unspecified, uncomplicated; O90.81 Anemia of the puerperium; D64.9 Anemia, unspecified; A60.09 Herpesviral infection of other urogenital tract; Z79.899 Other long term (current) drug therapy
CPT/HCPCS: 36415; 80053; 81000; 82570; 83615; 84156; 84550; 85025; 86850; 86900; 86901

== ENCOUNTER 2022-08-07 06:52 | Emergency (ER) | payer MEDICAID ==
[~2022-08-07] VITALS: Ht 157 cm; Wt 94.8 kg
[~2022-08-07 06:52] MED LIST changes: +VALA500T7 PO
[2022-08-07] MEDS ORDERED: ACETAMINOPHEN 500 MG TAB (TYLENOL) PO ONE (07:45)
[2022-08-07] MEDS ORDERED: ONDANSETRON 4 MG/2 ML (SDV) Z0FRAN IVP ONE (07:45)
[2022-08-07] MEDS ORDERED: LACTATED RINGERS 1,000 ML IV ONE (07:45)
[2022-08-07] MEDS ORDERED: KETOROLAC 30 MG/ML VIAL IVP ONE (07:45)
[2022-08-07 07:49] LABS: BASOPHILS % (AUTO) 0 % (0-10); EOSINOPHILS # (AUTO) 0.2 10^3/uL (0.0-0.3); EOSINOPHILS % (AUTO) 2 % (0-10); HEMATOCRIT 39 % (35-52); HEMOGLOBIN 13.9 g/dL (11.5-16.0); LYMPHOCYTES # (AUTO) 0.5 10^3/uL (1.0-4.0); LYMPHOCYTES % (AUTO) 7 % (12-44); MEAN CORPUSCULAR HEMOGLOBIN 27 pg (25-34); MEAN CORPUSCULAR HGB CONC 35 g/dL (32-36); MEAN CORPUSCULAR VOLUME 75 fL (80-99); MEAN PLATELET VOLUME 8.8 fL (9.0-12.2); MONOCYTES % (AUTO) 16 % (0-12); NEUTROPHILS # (AUTO) 4.7 10^3/uL (1.8-7.8); NEUTROPHILS % (AUTO) 74 % (42-75); PLATELET COUNT 406 10^3/uL (130-400); WHITE BLOOD COUNT 6.3 10^3/uL (4.3-11.0)
[2022-08-07 08:04] LABS: POTASSIUM 3.2 MMOL/L (3.6-5.0)
[2022-08-07 08:05] LABS: CALCIUM 9.8 MG/DL (8.5-10.1)
[2022-08-07 08:12] LABS: MAGNESIUM 1.5 MG/DL (1.6-2.4)
[2022-08-07] MEDS ORDERED: RX-NIRMATRELVIR/RITONAVIR (PAXLOVID) #30 TABS PO SCH (08:15)
--- NOTE | 2022-08-07 08:16 | ED General ---
General Chief Complaint: COVID19 Suspect/Confirmed Stated Complaint: FEVER 104.1,FEELING FAINT,BODY ACHES Nursing Triage Note: PT STATES FEVER OF 104 THIS MORNING, TYLENOL TAKEN AT 2200, KNOWN COVID EXPOSURE. VOMITING AND DIARRHEA, DIZZY Source of Information: Patient Exam Limitations: No Limitations History of Present Illness Date Seen by Provider: Aug 07, 2022 Allergies and Home Medications Allergies Coded Allergies: No Known Drug Allergies (Unverified , 06/27/10) Patient Home Medication List Ibuprofen (Ibu) 600 Mg Tablet, 600 MG PO Q6HR PRN for PAIN-MILD (1-4) Prescribed by: ASHLEY AYALA on 09/24/21 1027 Vin024/Iron Fumarate/FA/Dss ( 19 Tablet) 1 Each Tablet, 1 EACH PO, (Reported) Entered as Reported by: MIGUEL JEAN on 11/26/19 193 Sertraline HCl (Sertraline HCl) 25 Mg Tablet, 150 MG PO DAILY Prescribed by: MARCUS THOMSON on 08/28/21 1614 Past Mgdwnuk-Cfaatx-Sbnics Hx Patient Social History Tobacco Use?: No Use of E-Cig and/or Vaping dev: Yes Substance use?: Yes Substance type: Marijuana Alcohol Use?: No Immunizations Up To Date Tetanus Booster (TDap): Less than 5yrs Seasonal Allergies Seasonal Allergies: No Past Medical History Surgery/Hospitalization HX: HYPERTENSION Surgeries: Yes Gallbladder Respiratory: No Cardiac: No Neurological: No Reproductive Disorders: No Sexually Transmitted Disease: Yes HIV/AIDS: No Genitourinary: No Gastrointestinal: No Gall Bladder Disease Musculoskeletal: No Endocrine: No HEENT: No Cancer: No Psychosocial: Yes Depression Integumentary: Yes Herpes Blood Disorders: No Adverse Reaction/Blood Tranf: No Family Medical History Arthritis (Grandmother) Diabetes mellitus (Grandmother) FH: cancer (Grandfather had cancer in jaw) FH: heart failure FH: stroke (Grandfather) Hypertension (Grandmother) Myocardial infarction (Grandfather) Total blockage of heart Heart Disease, Cancer Physical Exam Vital Signs Vital Signs - First Documented 08/07/22 07:12 Temp 38.2 Pulse 125 Resp 20 B/P (MAP) 143/93 (110) Pulse Ox 99 O2 Delivery Room Air Capillary Refill : Less Than 3 Seconds Height, Weight, BMI Height: 5'3" Weight: 158lbs. 0.0oz. 71.833260mt; 38.00 BMI Method:Stated Procedures/Interventions Suture Size: 4-0 Progress/Results/Core Measures Suspected Sepsis SIRS Temperature: Pulse: 125 Respiratory Rate: 20 Laboratory Tests 08/07/22 07:40: White Blood Count 6.3 Blood Pressure 143 /93 Mean: 110 Laboratory Tests 08/07/22 07:40: Creatinine 1.00, Platelet Count 406H Results/Orders Lab Results Laboratory Tests Test 08/07/22 07:17 08/07/22 07:40 Range/Units Influenza Type A (RT-PCR) Not Detected Not Detecte Influenza Type B (RT-PCR) Not Detected Not Detecte SARS-CoV-2 RNA (RT-PCR) Detected H Not Detecte White Blood Count 6.3 4.3-11.0 10^3/uL Red Blood Count 5.24 H 3.80-5.11 10^6/uL Hemoglobin 13.9 11.5-16.0 g/dL Hematocrit 39 35-52 % Mean Corpuscular Volume 75 L 80-99 fL Mean Corpuscular Hemoglobin 27 25-34 pg Mean Corpuscular Hemoglobin Concent 35 32-36 g/dL Red Cell Distribution Width 14.4 10.0-14.5 % Platelet Count 406 H 130-400 10^3/uL Mean Platelet Volume 8.8 L 9.0-12.2 fL Immature Granulocyte % (Auto) 1 % Neutrophils (%) (Auto) 74 42-75 % Lymphocytes (%) (Auto) 7 L 12-44 % Monocytes (%) (Auto) 16 H 0-12 % Eosinophils (%) (Auto) 2 0-10 % Basophils (%) (Auto) 0 0-10 % Neutrophils # (Auto) 4.7 1.8-7.8 10^3/uL Lymphocytes # (Auto) 0.5 L 1.0-4.0 10^3/uL Monocytes # (Auto) 1.0 0.0-1.0 10^3/uL Eosinophils # (Auto) 0.2 0.0-0.3 10^3/uL Basophils # (Auto) 0.0 0.0-0.1 10^3/uL Immature Granulocyte # (Auto) 0.0 0.0-0.1 10^3/uL Neutrophils % (Manual) 76 % Lymphocytes % (Manual) 6 % Monocytes % (Manual) 18 % Blood Morphology Comment NORMAL D-Dimer 0.84 H 0.00-0.49 UG/ML Sodium Level 135 135-145 MMOL/L Potassium Level 3.2 L 3.6-5.0 MMOL/L Chloride Level 104 98-107 MMOL/L Carbon Dioxide Level 17 L 21-32 MMOL/L Anion Gap 14 5-14 MMOL/L Blood Urea Nitrogen 11 7-18 MG/DL Creatinine 1.00 0.60-1.30 MG/DL Estimat Glomerular Filtration Rate 79 BUN/Creatinine Ratio 11 Glucose Level 96 70-105 MG/DL Calcium Level 9.8 8.5-10.1 MG/DL Magnesium Level 1.5 L 1.6-2.4 MG/DL Serum Test, Qualitative NEGATIVE NEGATIVE My Orders Orders - JONATHON FISCHER MD Covid 19 Inhouse Test (08/07/22 07:12) Influenza A And B By Pcr (08/07/22 07:12) Ketorolac Injection (Toradol Injection) (08/07/22 07:45) Acetaminophen Tablet (Tylenol Tablet) (08/07/22 07:45) Ondansetron Injection (Zofran Injectio (08/07/22 07:45) Basic Metabolic Panel (08/07/22 07:33) Cbc With Automated Diff (08/07/22 07:33) Magnesium (08/07/22 07:33) Hcg,Qualitative Serum (08/07/22 07:33) Ed Iv/Invasive Line Start (08/07/22 07:33) Lactated Ringers (Lr 1000 Ml Iv Solution (08/07/22 07:45) Manual Differential (08/07/22 07:40) Rx-Nirmatrelvir/Ritonavir(Eua) (Rx-Paxlo (08/07/22 08:15) Potassium Chloride (Tablet) (Klor Con Ta (08/07/22 08:30) Magnesium 1 Gm/100 Ml Ivpb (Magnesium Will (08/07/22 08:30) Fibrin Degradation Products (08/07/22 09:09) Ct Angio Chest W (08/07/22 09:52) Iohexol Injection (Omnipaque 350 Mg/Ml 1 (08/07/22 10:00) Received Contrast (Hold Metformin- Contr (08/07/22 10:00) Sodium Chloride Flush (Catheter Flush Sy (08/07/22 10:00) Ns (Ivpb) (Sodium Chloride 0.9% Ivpb Bag (08/07/22 10:00) Medications Given in ED Current Medications Medications Dose Ordered Sig/Lucrecia Route Start Time Stop Time Status Last Admin Dose Admin Acetaminophen 1,000 mg ONCE ONCE PO 08/07/22 07:45 08/07/22 07:46 DC 08/07/22 07:46 1,000 MG Iohexol 100 ml ONCE ONCE IV 08/07/22 10:00 08/07/22 10:01 DC 08/07/22 10:40 79 ML Ketorolac Tromethamine 15 mg ONCE ONCE IVP 08/07/22 07:45 08/07/22 07:46 DC 08/07/22 07:47 15 MG Lactated Ringer's 1,000 ml @ 0 mls/hr Q0M ONCE IV 08/07/22 07:45 08/07/22 07:46 DC 08/07/22 07:46 1,000 MLS/HR Magnesium Sulfate/ Dextrose 100 ml @ 100 mls/hr ONCE ONCE IV 08/07/22 08:30 08/07/22 09:29 DC 08/07/22 08:39 100 MLS/HR Ondansetron HCl 4 mg ONCE ONCE IVP 08/07/22 07:45 08/07/22 07:46 DC 08/07/22 07:47 4 MG Potassium Chloride 40 meq ONCE ONCE PO 08/07/22 08:30 08/07/22 08:31 DC 08/07/22 08:39 40 MEQ Sodium Chloride 10 ml NEEDED PRN IV 08/07/22 10:00 08/07/22 10:40 10 ML Sodium Chloride 100 ml ONCE ONCE IV 08/07/22 10:00 08/07/22 10:01 DC 08/07/22 10:40 80 ML Vital Signs/I&O 08/07/22 08/07/22 08/07/22 08/07/22 07:12 07:25 07:46 07:47 Temp 38.2 38.2 38.2 Pulse 125 Resp 20 B/P (MAP) 143/93 (110) Pulse Ox 99 O2 Delivery Room Air Room Air Capillary Refill : Less Than 3 Seconds Blood Pressure Mean: 110 Progress Note : Time: 09:07 Progress Note Patient tested positive for COVID-19. We discussed therapies including monoclonal antibody therapy and Paxlovid. Patient would like to proceed with Paxlovid. I did check her medication interactions. She will be advised to reduce or stop Adderall while on Paxlovid. She received Toradol, Tylenol, and a liter of IV fluid. She is still tachycardic, experiencing chest pain with inspiration, and feeling rather short of breath after these therapies. We discussed screening for PE with a D-dimer test. Risks and benefits were reviewed with her. She would like to proceed with a D-dimer test. Departure Impression Primary Impression: COVID-19 Additional Impressions: Pleuritic chest pain Nausea vomiting and diarrhea Hypokalemia Hypomagnesemia Disposition: HOME, SELF-CARE Condition: Improved Departure-Patient Inst. Decision time for Depature: 11:21 Referrals: TERRENCE SELBY MD (PCP/Family) Primary Care Physician Patient Instructions: COVID-19 Overview, Nirmatrelvir and Ritonavir FDA Fact Sheet Add. Discharge Instructions: Drink plenty of clear liquids to stay well-hydrated and try to eat a well- balanced diet. Take a multivitamin daily if tolerated. For pain and fever you may take ibuprofen up to 600 mg every 6 hours and/or Tylenol (acetaminophen) up to 1000 mg every 6 hours. Complete the entire 10 doses of Paxlovid. You should decrease your Adderall or stop Adderall while on Paxlovid. Remain active while you are recovering from COVID-19. Walk around the home or outside frequently. When at rest in bed or sitting, change positions often. This will help improve your breathing, prevent pneumonia, and prevent blood clots. You may check your oxygen saturations with a pulse oximeter a few times a day or at times you feel more short of breath. If you have any oxygen saturations less than 90% or multiple saturations less than 92%, please return to the ER for further evaluation. If you have other worsening symptoms such as uncontrolled vomiting, diarrhea, shortness of breath, etc. you may also return to the emergency room. Remain in quarantine for 5 full days. If your symptoms have significantly improved by then, you may end quarantine and mask for an additional 5 days. All discharge instructions reviewed with patient and/or family. Voiced understanding. Scripts Ondansetron (Ondansetron Odt) 4 Mg Tab.rapdis 4 MG PO Q4M PRN for NAUSEA/VOMITING, #10 TAB Prov: JONATHON FISCHER MD 08/07/22 JONATHON FISCHER MD Aug 07, 2022 08:16
[2022-08-07 08:17] LABS: LYMPHOCYTES % (MANUAL) 6 %; MONOCYTES % (MANUAL) 18 %; NEUTROPHILS % (MANUAL) 76 %; RBC MORPH NORMAL
[2022-08-07] MEDS ORDERED: KCL 10 MEQ TAB (MICRO K) PO ONE (08:30)
[2022-08-07] MEDS ORDERED: MAGNESIUM 1 GM/100 ML IVPB 100 ML IV ONE (08:30)
[2022-08-07] MEDS ORDERED: CATHETER FLUSH 10 ML SYR IV PRN (10:00)
[2022-08-07] MEDS ORDERED: IOHEXOL 350 MG/ML 100 ML (OMNIPAQUE 350) VIAL IV ONE (10:00)
[2022-08-07] MEDS ORDERED: NS 100 ML (IVPB) BAG IV ONE (10:00)
[2022-08-07] MEDS ORDERED: HOLD METFORMIN - RECEIVED CONTRAST 20 ML VIAL IV SCH (10:00)
--- NOTE | 2022-08-07 10:59 | Diagnostic Imaging Report ---
PROCEDURE: CT angiography of the chest with contrast. TECHNIQUE: Multiple contiguous axial images were obtained through the chest after uneventful bolus administration of intravenous contrast. 3D reconstructed CTA MIP acquisitions were also performed. Auto Exposure Controls were utilized during the CT exam to meet ALARA standards for radiation dose reduction. INDICATION: Chest pain and shortness of breath. FINDINGS: There are no primary nodules, masses, or infiltrates. There is no pleural or pericardial fluid. There is no pneumothorax. There is no pathologically enlarged adenopathy in the chest. The thoracic aorta is normal in caliber and without evidence of dissection. There are no filling defects seen within the pulmonary arteries to suggest a pulmonary embolism. The visualized intraabdominal structures are unremarkable. The osseous structures are unremarkable. IMPRESSION: No acute abnormality in the chest. Specifically, there is no evidence of a pulmonary embolism or aortic dissection. Dictated by: Dictated on workstation # [id number]
[2022-08-07] MEDS ORDERED: CEPHALEXIN 250 MG (KEFLEX) CAP PO ONE (11:15)
[2022-08-07] MEDS ORDERED: TRIM/SULFAMETH 160/800 (SEPTRA DS) TAB PO ONE (11:15)
[2022-08-07] MEDS ORDERED: ONDA4TAB11 PO (11:28)
[2022-08-07 11:45] VITALS: BP 119/76
== END 2022-08-07 11:45 | disposition home or self-care (01) ==
LOC: EDUNIT# 06:52 → ER 07:05
DX: U07.1 COVID-19 (principal); E87.6 Hypokalemia; E83.42 Hypomagnesemia; R11.2 Nausea with vomiting, unspecified; R19.7 Diarrhea, unspecified; R07.81 Pleurodynia; Z82.49 Family history of ischemic heart disease and other diseases of the circulatory system; Z28.310 Unvaccinated for COVID-19
CPT/HCPCS: 36415; 71275; 80048; 83735; 84703; 85007; 85027; 85379; 87636

== ENCOUNTER 2022-08-09 15:38 | Emergency (ER) | payer MEDICAID ==
[~2022-08-09 15:38] MED LIST changes: +ONDA4TAB11 PO
== END 2022-08-09 16:31 | disposition left against medical advice (07) ==
LOC: EDUNIT# 15:38 → ER 15:41
DX: U07.1 COVID-19 (principal); Z73.0 Burn-out

== ENCOUNTER → 2022-12-15 | Outpatient (CLI) | payer MEDICAID | LOC: CARD 12:30 | PROVIDERS: ATTEND Nurse Practitioner Family | DX: R00.2 Palpitations (principal) | CPT/HCPCS: 93225; 93226 ==

== ENCOUNTER 2023-01-16 20:07 | Emergency (ER) | payer MEDICAID ==
[~2023-01-16] VITALS: Ht 157.5 cm; Wt 93.9 kg
[2023-01-16] MEDS ORDERED: PANTOPRAZOLE 40 MG (PROTONIX) VIAL IV STA (20:29)
[2023-01-16] MEDS ORDERED: NS IV 1000 ML 1,000 ML IV SCH (20:30)
[2023-01-16 20:37] LABS: BASOPHILS % (AUTO) 0 % (0-10); EOSINOPHILS # (AUTO) 0.1 10^3/uL (0.0-0.3); EOSINOPHILS % (AUTO) 1 % (0-10); HEMATOCRIT 43 % (35-52); HEMOGLOBIN 14.8 g/dL (11.5-16.0); LYMPHOCYTES % (AUTO) 13 % (12-44); MEAN CORPUSCULAR HEMOGLOBIN 27 pg (25-34); MEAN CORPUSCULAR HGB CONC 35 g/dL (32-36); MEAN CORPUSCULAR VOLUME 77 fL (80-99); MEAN PLATELET VOLUME 8.6 fL (9.0-12.2); MONOCYTES # (AUTO) 0.7 10^3/uL (0.0-1.0); MONOCYTES % (AUTO) 4 % (0-12); NEUTROPHILS # (AUTO) 12.6 10^3/uL (1.8-7.8); NEUTROPHILS % (AUTO) 82 % (42-75); PLATELET COUNT 533 10^3/uL (130-400); WHITE BLOOD COUNT 15.5 10^3/uL (4.3-11.0)
[2023-01-16 20:37] LABS: BILIRUBIN,URINE NEGATIVE (NEGATIVE); CLARITY,URINE CLEAR; COLOR,URINE YELLOW; GLUCOSE, URINE (UA) NEGATIVE (NEGATIVE); KETONES,URINE NEGATIVE (NEGATIVE); LEUKOCYTE ESTERASE ,URINE NEGATIVE (NEGATIVE); NITRITE,URINE NEGATIVE (NEGATIVE); PROTEIN,URINE TRACE (NEGATIVE)
--- NOTE | 2023-01-16 20:37 | ED Abdominal Pain ---
General Chief Complaint: Abdominal/GI Problems Stated Complaint: VOMITTING, ABD PAIN History of Present Illness Date Seen by Provider: Jan 16, 2023 Time Seen by Provider: 20:15 Initial Comments 28 year old female presents for abdominal pain, generalized. She reports not eating anything today, she was cooking dinner and felt nauseated. She ate 3 burritos, then vomited 6-8 times. 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 She also had 1 BM, no diarrhea. She denies nausea at this time, but feels like if she keeps vom iting, she will feel better. She drinks little to know water, but several pops daily. She reports not eating today, due to tight finances and feeding her children. Occasional GERD, does not take medication for this, due to finances. Stressed importance to discuss this at [facility], as they can assist with healthcare costs. Timing/Duration: 1 Hour Severity/Quality: Moderate Location: Epigastric, Generalized Abdomen Radiation: No Radiation Associated Symptoms: No Back Pain, No Chest Pain, No Fever/Chills; Heartburn, Nausea/Vomiting; No Shortness of Air (LUCI DANIELS) Allergies and Home Medications Allergies Coded Allergies: No Known Drug Allergies (Unverified , 06/27/10) Patient Home Medication List Home Medication List Reviewed: Yes (LUCI DANIELS) Famotidine (Pepcid) 20 Mg Tablet, 20 MG PO BID Prescribed by: LUCI DANIELS on 01/16/232208 Ibuprofen (Ibu) 600 Mg Tablet, 600 MG PO Q6HR PRN for PAIN-MILD (1-4) Prescribed by: ASHLEY AYALA on 09/24/21 1027 Ondansetron (Ondansetron Odt) 4 Mg Tab.rapdis, 4 MG PO Q4M PRN for NAUSEA/VOMITING Prescribed by: JONATHON GR on 08/07/22 1128 Kax735/Iron Fumarate/FA/Dss ( 19 Tablet) 1 Each Tablet, 1 EACH PO, (Reported) Entered as Reported by: MIGUEL JEAN on 11/26/191932 Sertraline HCl (Sertraline HCl) 25 Mg Tablet, 150 MG PO DAILY Prescribed by: MARCUS THOMSON on 08/28/21 1614 Review of Systems Review of Systems Constitutional: no symptoms reported, see HPI Gastrointestinal: See HPI, Abdominal Pain, Constipated; Denies Diarrhea; Nausea; Denies Rectal Bleeding; Vomiting (LUCI DANIELS) All Other Systems Reviewed Negative Unless Noted: Yes (LUCI DANIELS) Past Tkjnnwj-Fdzdqa-Gebthh Hx Patient Social History Tobacco Use?: No Use of E-Cig and/or Vaping dev: Yes E-Cig or Vaping type used: Nicotine Use of E-Cig and/or Vaping Kade: Current Everyday User Substance use?: Yes Substance type: Marijuana Substance frequency: Couple times a week Alcohol Use?: Yes Alcohol Frequency: Couple times a week Pt feels they are or have been: No (LUCI DANIELS) Immunizations Up To Date Tetanus Booster (TDap): Less than 5yrs Influenza Vaccine Up-to-Date: No; Not Current (LUCI DANIELS) Seasonal Allergies Seasonal Allergies: No (LUCI DANIELS) Past Medical History Surgery/Hospitalization HX: HYPERTENSION [place] Surgeries: Yes Gallbladder Respiratory: No Cardiac: No Neurological: No Reproductive Disorders: No Sexually Transmitted Disease: Yes HIV/AIDS: No Genitourinary: No Gastrointestinal: No Gall Bladder Disease Musculoskeletal: No Endocrine: No HEENT: No Cancer: No Psychosocial: Yes Depression Integumentary: Yes Herpes Blood Disorders: No Adverse Reaction/Blood Tranf: No (LUCI DANIELS) Family Medical History Reviewed Nursing Family Hx (LUCI DANIELS) Arthritis (Grandmother) Diabetes mellitus (Grandmother) FH: cancer (Grandfather had cancer in jaw) FH: heart failure FH: stroke (Grandfather) Hypertension (Grandmother) Myocardial infarction (Grandfather) Total blockage of heart Heart Disease, Cancer (LUCI DANIELS) Physical Exam Vital Signs Vital Signs - First Documented 01/16/23 20:13 Temp 36.7 Pulse 98 Resp 18 B/P (MAP) 144/92 (109) Pulse Ox 98 O2 Delivery Room Air (SUSANNA,GLORIA K DO) Vital Signs Capillary Refill : (LUCI DANIELS) Height/Weight/BMI Height: 5'3" Weight: 158lbs. 0.0oz. 71.154280sb; 38.00 BMI Method:Stated General Appearance: WD/WN, no apparent distress Neck: non-tender, full range of motion, supple, normal inspection Respiratory: chest non-tender, lungs clear, normal breath sounds Cardiovascular: normal peripheral pulses, regular rate, rhythm Gastrointestinal: normal bowel sounds, soft, tenderness (generalized, increased epigastic pain. ) Extremities: normal range of motion, non-tender, normal inspection Neurologic/Psychiatric: no motor/sensory deficits, alert, normal mood/affect, oriented x 3 Skin: normal color, warm/dry (JEREMIAH,LUCI LUMP RECEIVER) Procedures/Interventions Suture Size: 4-0 (JEREMIAH,LUCI LUMP RECEIVER) Progress/Results/Core Measures Results/Orders Lab Results Laboratory Tests Test 01/16/23 20:22 01/16/23 20:26 Range/Units White Blood Count 15.5 H 4.3-11.0 10^3/uL Red Blood Count 5.55 H 3.80-5.11 10^6/uL Hemoglobin 14.8 11.5-16.0 g/dL Hematocrit 43 35-52 % Mean Corpuscular Volume 77 L 80-99 fL Mean Corpuscular Hemoglobin 27 25-34 pg Mean Corpuscular Hemoglobin Concent 35 32-36 g/dL Red Cell Distribution Width 14.3 10.0-14.5 % Platelet Count 533 H 130-400 10^3/uL Mean Platelet Volume 8.6 L 9.0-12.2 fL Immature Granulocyte % (Auto) 1 % Neutrophils (%) (Auto) 82 H 42-75 % Lymphocytes (%) (Auto) 13 12-44 % Monocytes (%) (Auto) 4 0-12 % Eosinophils (%) (Auto) 1 0-10 % Basophils (%) (Auto) 0 0-10 % Neutrophils # (Auto) 12.6 H 1.8-7.8 10^3/uL Lymphocytes # (Auto) 2.0 1.0-4.0 10^3/uL Monocytes # (Auto) 0.7 0.0-1.0 10^3/uL Eosinophils # (Auto) 0.1 0.0-0.3 10^3/uL Basophils # (Auto) 0.0 0.0-0.1 10^3/uL Immature Granulocyte # (Auto) 0.1 0.0-0.1 10^3/uL Neutrophils % (Manual) 89 % Lymphocytes % (Manual) 8 % Monocytes % (Manual) 3 % Microcytosis SLIGHT Sodium Level 139 135-145 MMOL/L Potassium Level 3.5 L 3.6-5.0 MMOL/L Chloride Level 102 98-107 MMOL/L Carbon Dioxide Level 24 21-32 MMOL/L Anion Gap 13 5-14 MMOL/L Blood Urea Nitrogen 9 7-18 MG/DL Creatinine 0.76 0.60-1.30 MG/DL Estimat Glomerular Filtration Rate 109 BUN/Creatinine Ratio 12 Glucose Level 93 70-105 MG/DL Calcium Level 9.5 8.5-10.1 MG/DL Corrected Calcium 9.2 8.5-10.1 MG/DL Total Bilirubin 0.3 0.1-1.0 MG/DL Aspartate Amino Transf (AST/SGOT) 18 5-34 U/L Alanine Aminotransferase (ALT/SGPT) 24 0-55 U/L Alkaline Phosphatase 96 40-136 U/L C-Reactive Protein High Sensitivity 1.83 H 0.00-0.50 MG/DL Total Protein 7.9 6.4-8.2 GM/DL Albumin 4.4 3.2-4.5 GM/DL Amylase Level 68 25-125 U/L Lipase 25 8-78 U/L Urine Color YELLOW Urine Clarity CLEAR Urine pH 6.0 5-9 Urine Specific [place] >=1.030 1.016-1.022 Urine Protein TRACE H NEGATIVE Urine Glucose (UA) NEGATIVE NEGATIVE Urine Ketones NEGATIVE NEGATIVE Urine Nitrite NEGATIVE NEGATIVE Urine Bilirubin NEGATIVE NEGATIVE Urine Urobilinogen 0.2 < = 1.0 MG/DL Urine Leukocyte Esterase NEGATIVE NEGATIVE Urine RBC (Auto) NEGATIVE NEGATIVE Urine RBC NONE /HPF Urine WBC 0-2 /HPF Urine Squamous Epithelial Cells 10-25 H /HPF Urine Crystals NONE /LPF Urine Bacteria FEW H /HPF Urine Casts NONE /LPF Urine Mucus MODERATE H /LPF Urine Culture Indicated NO Urine Opiates Screen NEGATIVE NEGATIVE Urine Oxycodone Screen NEGATIVE NEGATIVE Urine Methadone Screen NEGATIVE NEGATIVE Urine Propoxyphene Screen NEGATIVE NEGATIVE Urine Barbiturates Screen NEGATIVE NEGATIVE Ur Tricyclic Antidepressants Screen NEGATIVE NEGATIVE Urine Phencyclidine Screen NEGATIVE NEGATIVE Urine Amphetamines Screen NEGATIVE NEGATIVE Urine Methamphetamines Screen NEGATIVE NEGATIVE Urine Benzodiazepines Screen NEGATIVE NEGATIVE Urine Cocaine Screen NEGATIVE NEGATIVE Urine Cannabinoids Screen NEGATIVE NEGATIVE (GLORIA MULLINS DO) Medications Given in ED Current Medications Medications Dose Ordered Sig/Lucrecia Route Start Time Stop Time Status Last Admin Dose Admin Iohexol 100 ml ONCE ONCE IV 01/16/23 21:00 01/16/23:01 DC 01/16/23 21:12 80 ML Sodium Chloride 100 ml ONCE ONCE IV 01/16/23 21:00 01/16/23 21:01 DC 01/16/23 21:13 80 ML (GLORIA MULLINS DO) Vital Signs/I&O 01/16/23 01/16/23 20:13 22:38 Temp 36.7 Pulse 98 89 Resp 18 18 B/P (MAP) 144/92 (109) 118/78 Pulse Ox 98 99 O2 Delivery Room Air Room Air (GLORIA MULLINS DO) Progress Progress Note : Time: 20:15 Progress Note Patient assessed, will obtain labs, normal saline 1 L per IV and Protonix 40 mg IV. 2044 WBC elevated 15.5, will get CT abdomen and pelvis. Patient reports symptoms improving since getting fluids and the Protonix. She has had no episodes of vomiting or diarrhea. 2129 CT neg for appendicitis. Gastroenteritis noted and mesenteric adenitis. CT results reviewed with the patient and her . She continues to have mild abdominal pain but no nausea or vomiting. Toradol 30 mg IV. 2144 discharge instructions and return precautions reviewed. (LUCI DANIELS) Diagnostic Imaging Diagonstic Imaging: CT Plain Films/CT/US/NM/MRI: abdomen, pelvis Comments NAME: WALTER DEJESUS Christen [facility] REC#: [id number] PT STATUS: REG ER : 1995 PHYSICIAN: LUCI DANIELS ADMIT DATE: 01/16/23/ER Draft Date of Exam:01/16/23 CT ABD/PELV W (APPENDICITIS) CLINICAL INDICATIONS: Patient with abdominal pain, nausea, vomiting and diarrhea x1 hour. Patient reports vomiting 6 to 8 times in the last hour. Patient has explosive diarrhea. EXAM: Axial CT scan of the abdomen and pelvis performed with 80 mL of Omnipaque 350 IV contrast. Sagittal and coronal reformatted images were created. Auto Exposure Controls were utilized during the CT exam to meet ALARA standards for radiation dose reduction. COMPARISON: None. FINDINGS: There is minimal atelectasis involving both lung bases. Bones show no significant abnormality. Gallbladder is surgically absent. The liver, spleen, pancreas, and adrenal glands are unremarkable. There is no intrahepatic or extrahepatic ductal dilation. There are either nonobstructive bilateral renal stones and/or partially excreted contrast seen. There are no stones in the ureter. Bladder is partially fluid-filled and otherwise unremarkable. The uterus and adnexal structures are unremarkable. There is wall thickening involving the sigmoid colon, descending colon, portions of the transverse colon and ascending colon. There are air-fluid levels which are nondilated throughout the colon seen. There are also fluid-filled loops of small bowel throughout the abdomen which are nondilated. There are loops of wall thickening involving the jejunum. There is wall thickening involving the gastric antrum. The appendix is unremarkable. There is no intraabdominal free air or free fluid. There are multiple lymph nodes in the mesenteric region. The extra-abdominal and extrapelvic soft tissue structures are unremarkable. IMPRESSION: 1: There is diffuse wall thickening involving the colon with the sigmoid colon and left colon affected the most. There is fluid throughout the colon which may be related to patient's history of diarrhea. Nondilated fluid-filled loops of small bowel throughout the abdomen as well. There are loops of wall thickening involving the jejunum and also gastric antrum. These findings may be related to gastroenteritis and colitis. 2: Mesenteric adenopathy. 3: The appendix is unremarkable. Dictated on workstation # [id number] Dict: 01/16/23 2151 Trans: 01/16/232199 [facility] [id number] Interpreted by: AJIT LIVINGSTON MD Electronically signed by: (LUCI DANIELS) Departure Impression Primary Impression: Abdominal pain Qualified Codes: R10.84 - Generalized abdominal pain Additional Impressions: Nausea and vomiting Qualified Codes: R11.2 - Nausea with vomiting, unspecified Gastroenteritis Disposition: 01 HOME, SELF-CARE Condition: Improved Departure-Patient Inst. Decision time for Depature: 21:55 (LUCI DANIELS) Referrals: TERRENCE SELBY MD (PCP/Family) Primary Care Physician Patient Instructions: Viral Gastroenteritis, Adult (DC) Add. Discharge Instructions: Clear liquid diet for the next 8 hours, then bland diet as tolerated. Increase water intake. Take Zofran, as needed for nausea and vomiting. Use Pepcid for reflux 20 mg twice daily. Sent to [facility]. Follow up at [facility], if symptoms are not improving or for assistance with medications. Return to the emergency department for new, urgent healthcare needs. All discharge instructions reviewed with patient and/or family. Voiced un derstanding. Scripts Famotidine (Pepcid) 20 Mg Tablet 20 MG PO BID, #60 TAB 2 Refills Prov: LUCI DANIELS 01/16/23 ATTENDING PHYSICIAN NOTE: I WAS PHYSICALLY PRESENT ER PHYSICIAN, BUT I WAS NOT INVOLVED IN ANY DECISION MAKING OR ANY CARE OF THIS PATIENT, AND I AM NOT COLLABORATING PHYSICIAN. (GLORIA MULLINS DO) Copy Copies To 1: TERRENCE SELBY MD, AMY ARNP Jan 16, 2023 20:37 GLORIA MULLINS DO Jan 17, 2023 04:17
[2023-01-16 20:51] LABS: ALBUMIN 4.4 GM/DL (3.2-4.5); BILIRUBIN,TOTAL 0.3 MG/DL (0.1-1.0); CALCIUM 9.5 MG/DL (8.5-10.1); CREATININE SERUM 0.76 MG/DL (0.60-1.30); POTASSIUM 3.5 MMOL/L (3.6-5.0); TOTAL PROTEIN 7.9 GM/DL (6.4-8.2)
[2023-01-16] MEDS ORDERED: NS 100 ML (IVPB) BAG IV ONE (21:00)
[2023-01-16] MEDS ORDERED: IOHEXOL 350 MG/ML 100 ML (OMNIPAQUE 350) VIAL IV ONE (21:00)
[2023-01-16 21:05] LABS: AMPHETAMINE SCREEN, URINE NEGATIVE (NEGATIVE); BARBITURATE SCREEN URINE NEGATIVE (NEGATIVE); BENZODIAZEPINES SCREEN URINE NEGATIVE (NEGATIVE); CANNABINOID SCREEN, URINE NEGATIVE (NEGATIVE); COCAINE SCREEN URINE NEGATIVE (NEGATIVE); METHADONE STAT NEGATIVE (NEGATIVE); OPIATE SCREEN URINE NEGATIVE (NEGATIVE); OXYCODONE STAT NEGATIVE (NEGATIVE); PROPOXYPHENE STAT NEGATIVE (NEGATIVE); TRICYCLIC ANTIDEPRESSANTS SCRE NEGATIVE (NEGATIVE)
[2023-01-16 21:25] LABS: BACTERIA,URINE FEW /HPF; WBC,URINE 0-2 /HPF
[2023-01-16 21:35] LABS: LYMPHOCYTES % (MANUAL) 8 %; MICROCYTOSIS SLIGHT; MONOCYTES % (MANUAL) 3 %; NEUTROPHILS % (MANUAL) 89 %
--- NOTE | 2023-01-16 22:01 | Diagnostic Imaging Report ---
CLINICAL INDICATIONS: Patient with abdominal pain, nausea, vomiting and diarrhea x1 hour. Patient reports vomiting 6 to 8 times in the last hour. Patient has explosive diarrhea. EXAM: Axial CT scan of the abdomen and pelvis performed with 80 mL of Omnipaque 350 IV contrast. Sagittal and coronal reformatted images were created. Auto Exposure Controls were utilized during the CT exam to meet ALARA standards for radiation dose reduction. COMPARISON: None. FINDINGS: There is minimal atelectasis involving both lung bases. Bones show no significant abnormality. Gallbladder is surgically absent. The liver, spleen, pancreas, and adrenal glands are unremarkable. There is no intrahepatic or extrahepatic ductal dilation. There are either nonobstructive bilateral renal stones and/or partially excreted contrast seen. There are no stones in the ureter. Bladder is partially fluid-filled and otherwise unremarkable. The uterus and adnexal structures are unremarkable. There is wall thickening involving the sigmoid colon, descending colon, portions of the transverse colon and ascending colon. There are air-fluid levels which are nondilated throughout the colon seen. There are also fluid-filled loops of small bowel throughout the abdomen which are nondilated. There are loops of wall thickening involving the jejunum. There is wall thickening involving the gastric antrum. The appendix is unremarkable. There is no intraabdominal free air or free fluid. There are multiple lymph nodes in the mesenteric region. The extra-abdominal and extrapelvic soft tissue structures are unremarkable. IMPRESSION: 1: There is diffuse wall thickening involving the colon with the sigmoid colon and left colon affected the most. There is fluid throughout the colon which may be related to patient's history of diarrhea. Nondilated fluid-filled loops of small bowel throughout the abdomen as well. There are loops of wall thickening involving the jejunum and also gastric antrum. These findings may be related to gastroenteritis and colitis. 2: Mesenteric adenopathy. 3: The appendix is unremarkable. Dictated by: Dictated on workstation # [id number]
[2023-01-16] MEDS ORDERED: FAMO-119 PO (22:09)
[2023-01-16] MEDS ORDERED: RX-ONDANSETRON 4 MG ODT (ZOFRAN) PPK #4 PO STA (22:10)
[2023-01-16] MEDS ORDERED: KETOROLAC 30 MG/ML VIAL IVP STA (22:14)
[2023-01-16 22:38] VITALS: BP 118/78
== END 2023-01-16 22:38 | disposition home or self-care (01) ==
LOC: EDUNIT# 20:07 → ER 20:09
DX: K52.9 Noninfective gastroenteritis and colitis, unspecified (principal); I88.0 Nonspecific mesenteric lymphadenitis; F17.290 Nicotine dependence, other tobacco product, uncomplicated; Z28.310 Unvaccinated for COVID-19; Z87.19 Personal history of other diseases of the digestive system
CPT/HCPCS: 36415; 74177; 80053; 80306; 81000; 82150; 83690; 84703; 85007; 85027; 86141